=== PATIENT | male | born 1955 | race Caucasian/White ===

== ENCOUNTER 2016-09-28 15:12 | Emergency (ER) | payer BC ==
--- NOTE | 2016-09-28 15:43 | EDM.PDOC ---
ED HPI GENERAL MEDICAL PROBLEM - General Chief Complaint: Lower Extremity Injury/Pain Stated Complaint: PAIN IN RIGHT HIP AND GROIN Time Seen by Provider: 09/28/16 15:38 - History of Present Illness INITIAL COMMENTS - FREE TEXT/NARRATIVE: HISTORY AND PHYSICAL: []60-year-old male presenting with right hip pain radiating to his groin History of Present Illness: []Pain occurs when patient is up and walking. This has been a chronic problem where he goes to the chiropractor and is good for about 1 day Pain used to occur every 6 weeks or so, this is the third time this week that this has happened. Pain is relieved when sitting or laying down. When walking pain is 8/10 Review of Systems: As per history of present illness and below otherwise all systems reviewed and negative. Past medical history: As per history of present illness and as reviewed below otherwise noncontributory. Surgical history: As per history of present illness and as reviewed below otherwise noncontributory. Social history: No reported history of drug or alcohol abuse. Family history: As per history of present illness and as reviewed below otherwise noncontributory. Physical exam: Alert and oriented gentleman answering questions appropriately has a good affect skin is warm and dry. Patient did see his chiropractor yesterday and pain recurred today. HEENT: Atraumatic, normocehpalic, pupils reactive, negative for conjunctival pallor or scleral icterus, mucous membranes moist, throat clear, neck supple, nontender, trachea midline. Lungs: Clear to auscultation, breath sounds equal bilaterally, chest non tender. Heart: S1S2, regular, negative for clicks, rubs, or JVD. Abdomen: Soft, nondistended, nontender. Negative for masses or hepatossplenmegaly. Negative for costovertebral tenderness. Pelvis: Stable nontender. Right hip nontender with palpation extending to the right groin area no pain with palpation Genitourinary: Deferred. Rectal: Deferred Extremities: Atraumatic, negative for cords or calf pain. Neurovascular unremarkable. Neuro: Awake, alert, oriented. Cranial nerves II through XII unremarkable. Cerebellum unremarkable. Motor and sensory unremarkable throughout. Exam nonfocal. Diagnostics: [Right hip x-ray with pelvis] Therapeutics: [] Impression: [Degenerative disease right hip] Plan: []Home anti-inflammatories Definitive disposition and diagnosis as appropriate pending reevaluation and review of above. Onset: Sudden Duration: Chronic, Intermittent Right Hip/Martir Pain Score (Numeric/FACES): 2 - Related Data Allergies Allergy/AdvReac Type Severity Reaction Status Date / Time No Known Allergies Allergy Verified 09/28/16 15:28 Home Meds: Home Meds Multivitamin [Daily Multiple Vitamin] 1 tab PO DAILY 12/01/15 [History] Past Medical History Other HEENT History: wears glasses Cardiovascular History: Reports: None, Other (See Below) Respiratory History: Reports: None Gastrointestinal History: Reports: None Genitourinary History: Reports: Renal Calculus Musculoskeletal History: Reports: Arthritis, Back Pain, Chronic, Neck Pain, Chronic Neurological History: Reports: None Psychiatric History: Reports: None Endocrine/Metabolic History: Reports: Obesity/BMI 30+ Hematologic History: Reports: None Immunologic History: Reports: None Oncologic (Cancer) History: Reports: None Dermatologic History: Reports: None - Infectious Disease History Infectious Disease History: Reports: Chicken Pox, Measles - Past Surgical History Head Surgeries/Procedures: Reports: None HEENT Surgical History: Reports: Adenoidectomy, Oral Surgery, Tonsillectomy Respiratory Surgical History: Reports: None GI Surgical History: Reports: Colonoscopy Male Surgical History: Reports: Kidney Stone Extraction, Lithotripsy (ESWL) Endocrine Surgical History: Reports: None Neurological Surgical History: Reports: None Oncologic Surgical History: Reports: None Dermatological Surgical History: Reports: None - History Comment History Comment: etoh "2x a day" per ER note, but the patient states that he has not had ETOH in one year. Social & Family History - Family History Family Medical History: Noncontributory - Tobacco Use Smoking Status *Q: Never Smoker Second Hand Smoke Exposure: No - Alcohol Use Days Per Week of Alcohol Use: 1 Number of Drinks Per Day: 2 Total Drinks Per Week: 2 - Recreational Drug Use Recreational Drug Use: No Drug Use in Last 12 Months: No Review of Systems - Review of Systems Review Of Systems: ROS reveals no pertinent complaints other than HPI. ED EXAM, GENERAL - Physical Exam Exam: See Below (See dictation) Course - Vital Signs Last Recorded V/S: Last Vital Signs Temp 36.6 C 09/28/16 15:28 Pulse 68 09/28/16 15:28 Resp 18 09/28/16 15:28 BP 133/82 09/28/16 15:28 Pulse Ox 94 L 09/28/16 15:28 Departure - Departure Time of Disposition: 16:54 Disposition: Home, Self-Care 01 Condition: Good Clinical Impression: Degenerative arthritis Qualifiers: Osteoarthritis location: hip Osteoarthritis type: primary Laterality: right Qualified Code(s): M16.11 - Unilateral primary osteoarthritis, right hip - Discharge Information Instructions: Hip Pain Forms: ED Department Discharge Additional Instructions: The following information is given to patients seen in the emergency department who are being discharged to home. This information is to outline your options for follow-up care. We provide all patients seen in our emergency department with a follow-up referral. The need for follow-up, as well as the timing and circumstances, are variable depending upon the specifics of your emergency department visit. If you don't have a primary care physician on staff, we will provide you with a referral. We always advise you to contact your personal physician following an emergency department visit to inform them of the circumstance of the visit and for follow-up with them and/or the need for any referrals to a consulting specialist. The emergency department will also refer you to a specialist when appropriate. This referral assures that you have the opportunity for followup care with a specialist. All of these measure are taken in an effort to provide you with optimal care, which includes your followup. Under all circumstances we always encourage you to contact your private physician who remains a resource for coordinating your care. When calling for followup care, please make the office aware that this follow-up is from your recent emergency room visit. If for any reason you are refused follow-up, please contact the [facility] emergency department at and asked to speak to the emergency department charge nurse. Your treated with some Toradol IM for pain Please continue with your [id number] pain medication Keep appointment with Dr. Gonzalez on of next week
--- NOTE | 2016-09-28 16:14 | CR ---
EXAMINATION: Pelvis and right hip HISTORY: Pain COMPARISON: CT dated 11/29/2015 TECHNIQUE: AP pelvis and 2 views of the right hip FINDINGS: No fracture or acute osseous abnormality is demonstrated. Bone mineralization and joint sp aces are grossly preserved. Prominent spurring is noted along the superior margin of the acetabula b ilaterally. Mild subchondral cystic change within the left hip. The SI joints are symmetric with ant erior osteophytes. IMPRESSION: 1. Degenerative changes without acute findings.
[2016-09-28] MEDS ORDERED: Ketorolac 60 MG/2 ML SDV IM ONE (16:55)
[2016-09-28 18:31] VITALS: BP 131/89
== END 2016-09-28 17:20 | disposition home or self-care (01) ==
LOC: MW.ED 15:12
DX: M16.11 Unilateral primary osteoarthritis, right hip (principal); E66.9 Obesity, unspecified; Z87.442 Personal history of urinary calculi; Z98.890 Other specified postprocedural states
CPT/HCPCS: 73502; 96372; 99283; J1885

== ENCOUNTER 2017-04-13 11:50 | Emergency (ER) | payer BC ==
[2017-04-13] MEDS ORDERED: Sodium Chloride 0.9% 2.5 ML Syringe FLUSH PRN (12:08)
[2017-04-13] MEDS ORDERED: Sodium Chloride 0.9% 10 ML Syringe FLUSH PRN (12:08)
[2017-04-13] MEDS ORDERED: Sodium Chloride 0.9% 1,000 ML IV ONE (12:08)
--- NOTE | 2017-04-13 12:10 | EDM.PDOC ---
ED HPI GENERAL MEDICAL PROBLEM - General Stated Complaint: WEAK,DARK STOOL Time Seen by Provider: 04/13/17 12:01 Source of Information: Reports: Patient History Limitations: Reports: No Limitations - History of Present Illness INITIAL COMMENTS - FREE TEXT/NARRATIVE: History of present illness: []Patient started having bloody stools this morning's had 3 episodes. Patient may have passed out while sitting on the toilet during the episodes. He denies any abdominal pain, nausea vomiting, rectal pain or dizziness at this time. Patient's last colonoscopy was done by Dr. Ying 4 or 5 years ago and states he may have had a polyp removed. Review of systems: As per history of present illness and below otherwise all systems reviewed and negative. Past medical history: As per history of present illness and as reviewed below otherwise noncontributory. Surgical history: As per history of present illness and as reviewed below otherwise noncontributory. Social history: No reported history of drug or alcohol abuse. Family history: As per history of present illness and as reviewed below otherwise noncontributory. Physical exam: General: Well developed, well nourished in NAD HEENT: Atraumatic, normocephalic, pupils reactive, negative for conjunctival pallor or scleral icterus, mucous membranes moist, throat clear, neck supple, nontender, trachea midline. Lungs: Clear to auscultation, breath sounds equal bilaterally, chest nontender. Heart: S1S2, regular, negative for clicks, rubs, or JVD. Abdomen: Soft, nondistended, nontender. Negative for masses or hepatosplenomegaly. Negative for costovertebral tenderness. Pelvis: Stable nontender. Genitourinary: Deferred. Rectal: Black stool positive guaiac Extremities: Atraumatic, negative for cords or calf pain. Neurovascular unremarkable. Neuro: Awake, alert, oriented. Cranial nerves II through XII unremarkable. Cerebellum unremarkable. Motor and sensory unremarkable throughout. Exam nonfocal. Diagnostics: []Labs are normal showing no anemia unstable Therapeutics: [] Impression: []Lower GI bleed Plan: []Follow-up with Dr. Davis on April 16 for appointment time. Definitive disposition and diagnosis as appropriate pending reevaluation and review of above. - Related Data Allergies Allergy/AdvReac Type Severity Reaction Status Date / Time No Known Allergies Allergy Verified 04/13/17 12:17 Home Meds: Home Meds Multivitamin [Daily Multiple Vitamin] 1 tab PO DAILY 12/01/15 [History] Calcium Polycarbophil [Fiber Tabs] 1 tab PO DAILY 04/13/17 [History] Fish Oil/[place]-3 Fatty Acids [Fish Oil] 1 each PO DAILY 04/13/17 [History] Past Medical History Other HEENT History: wears glasses Cardiovascular History: Reports: None, Other (See Below) Respiratory History: Reports: None Gastrointestinal History: Reports: None Genitourinary History: Reports: Renal Calculus Musculoskeletal History: Reports: Arthritis, Back Pain, Chronic, Neck Pain, Chronic Neurological History: Reports: None Psychiatric History: Reports: None Endocrine/Metabolic History: Reports: Obesity/BMI 30+ Hematologic History: Reports: None Immunologic History: Reports: None Oncologic (Cancer) History: Reports: None Dermatologic History: Reports: None - Infectious Disease History Infectious Disease History: Reports: Chicken Pox, Measles - Past Surgical History Head Surgeries/Procedures: Reports: None HEENT Surgical History: Reports: Adenoidectomy, Oral Surgery, Tonsillectomy Respiratory Surgical History: Reports: None GI Surgical History: Reports: Colonoscopy Male Surgical History: Reports: Kidney Stone Extraction, Lithotripsy (ESWL) Endocrine Surgical History: Reports: None Neurological Surgical History: Reports: None Oncologic Surgical History: Reports: None Dermatological Surgical History: Reports: None - History Comment History Comment: etoh "2x a day" per ER note, but the patient states that he has not had ETOH in one year. Social & Family History - Family History Family Medical History: Noncontributory - Tobacco Use Smoking Status *Q: Never Smoker Second Hand Smoke Exposure: No - Alcohol Use Days Per Week of Alcohol Use: 1 Number of Drinks Per Day: 2 Total Drinks Per Week: 2 - Recreational Drug Use Recreational Drug Use: No Drug Use in Last 12 Months: No ED ROS GENERAL - Review of Systems Review Of Systems: See Below (See history of present illness) ED EXAM, GI/ABD - Physical Exam Exam: See Below (See history of present illness) Course - Vital Signs Last Recorded V/S: Last Vital Signs Temp Pulse 90 04/13/17 12:15 Resp 12 04/13/17 12:15 BP 118/73 04/13/17 12:15 Pulse Ox 97 04/13/17 12:15 - Orders/Labs/Meds Orders: Active Orders 24 hr Category Date Time Status Communication Order [RC] STAT Care 04/13/17 13:36 Active Fecal Occult Blood Collection [RC] ASDIRECTED Care 04/13/17 13:59 Active Sodium Chloride 0.9% [Saline Flush] Med 04/13/17 12:08 Active 10 ml FLUSH ASDIRECTED PRN Sodium Chloride 0.9% [Saline Flush] Med 04/13/17 12:08 Active 2.5 ml FLUSH ASDIRECTED PRN Saline Lock Insert [OM.PC] Stat Oth 04/13/17 12:08 Ordered Medication Orders Sodium Chloride (Saline Flush) 10 ml FLUSH ASDIRECTED PRN PRN Reason: Keep Vein Open Sodium Chloride (Saline Flush) 2.5 ml FLUSH ASDIRECTED PRN PRN Reason: Keep Vein Open Labs: Laboratory Tests 04/13/17 04/13/17 04/13/17 Range/Units 12:19 12:19 12:19 WBC 15.33 H (4.0-11.0) K/uL RBC 4.67 (4.50-5.90) M/uL Hgb 13.2 (13.0-17.0) g/dL Hct 39.5 (38.0-50.0) % MCV 84.6 (80.0-98.0) fL MCH 28.3 (27.0-32.0) pg MCHC 33.4 (31.0-37.0) g/dL RDW Std Deviation 41.3 (28.0-62.0) fl RDW Coeff of [place] 14 (11.0-15.0) % Plt Count 426 H (150-400) K/uL MPV 10.40 (7.40-12.00) fL Neut % (Auto) 83.7 H (48.0-80.0) % Lymph % (Auto) 12.8 L (16.0-40.0) % [place] % (Auto) 3.2 (0.0-15.0) % Eos % (Auto) 0.1 (0.0-7.0) % Baso % (Auto) 0.2 (0.0-1.5) % Neut # (Auto) 12.8 H (1.4-5.7) K/uL Lymph # (Auto) 2.0 (0.6-2.4) K/uL [place] # (Auto) 0.5 (0.0-0.8) K/uL Eos # (Auto) 0.0 (0.0-0.7) K/uL Baso # (Auto) 0.0 (0.0-0.1) K/uL Nucleated RBC % 0.0 /100WBC Nucleated RBCs # 0 K/uL INR 1.05 (0.86-1.11) APTT 24.0 (18.6-31.3) SEC Sodium 140 (136-146) mmol/L Potassium 4.2 (3.5-5.1) mmol/L Chloride 113 H (98-110) mmol/L Carbon Dioxide 20 L (21-31) mmol/L BUN 57 H (6.0-23.0) mg/dL Creatinine 1.0 (0.6-1.5) mg/dL Est Cr Clr Drug Dosing 78.07 mL/min Estimated GFR (MDRD) > 60.0 ml/min Glucose 157 H (60-110) mg/dL Calcium 9.4 (8.8-10.8) mg/dL Total Bilirubin 1.1 (0.1-1.5) mg/dL AST 11 (5-40) IU/L ALT 16 (8-54) IU/L Alkaline Phosphatase 37 L (40-150) Total Protein 6.5 (6.0-8.0) g/dL Albumin 4.2 (3.4-4.8) g/dL Globulin 2.3 (2.0-3.5) g/dL Albumin/Globulin Ratio 1.8 (1.3-2.8) Blood Type Antibody Screen 04/13/17 Range/Units 12:19 WBC (4.0-11.0) K/uL RBC (4.50-5.90) M/uL Hgb (13.0-17.0) g/dL Hct (38.0-50.0) % MCV (80.0-98.0) fL MCH (27.0-32.0) pg MCHC (31.0-37.0) g/dL RDW Std Deviation (28.0-62.0) fl RDW Coeff of Howard (11.0-15.0) % Plt Count (150-400) K/uL MPV (7.40-12.00) fL Neut % (Auto) (48.0-80.0) % Lymph % (Auto) (16.0-40.0) % [place] % (Auto) (0.0-15.0) % Eos % (Auto) (0.0-7.0) % Baso % (Auto) (0.0-1.5) % Neut # (Auto) (1.4-5.7) K/uL Lymph # (Auto) (0.6-2.4) K/uL [place] # (Auto) (0.0-0.8) K/uL Eos # (Auto) (0.0-0.7) K/uL Baso # (Auto) (0.0-0.1) K/uL Nucleated RBC % /100WBC Nucleated RBCs # K/uL INR (0.86-1.11) APTT (18.6-31.3) SEC Sodium (136-146) mmol/L Potassium (3.5-5.1) mmol/L Chloride (98-110) mmol/L Carbon Dioxide (21-31) mmol/L BUN (6.0-23.0) mg/dL Creatinine (0.6-1.5) mg/dL Est Cr Clr Drug Dosing mL/min Estimated GFR (MDRD) ml/min Glucose (60-110) mg/dL Calcium (8.8-10.8) mg/dL Total Bilirubin (0.1-1.5) mg/dL AST (5-40) IU/L ALT (8-54) IU/L Alkaline Phosphatase (40-150) Total Protein (6.0-8.0) g/dL Albumin (3.4-4.8) g/dL Globulin (2.0-3.5) g/dL Albumin/Globulin Ratio (1.3-2.8) Blood Type O POSITIVE Antibody Screen NEGATIVE Meds: Medications Generic Name Dose Route Start Last Admin Trade Name Freq PRN Reason Stop Dose Admin Sodium Chloride 10 ml 04/13/17 12:08 Saline Flush FLUSH ASDIRECTED PRN Keep Vein Open Sodium Chloride 2.5 ml 04/13/17 12:08 Saline Flush FLUSH ASDIRECTED PRN Keep Vein Open Discontinued Medications Generic Name Dose Route Start Last Admin Trade Name Freq PRN Reason Stop Dose Admin Sodium Chloride 1,000 mls @ 999 mls/hr 04/13/17 12:08 Normal Saline IV 04/13/17 13:08 .Bolus ONE Departure - Departure Time of Disposition: 14:01 Disposition: Home, Self-Care 01 Condition: Good Clinical Impression: Lower GI bleeding - Discharge Information Referrals: Svetlana Styles MD [Physician] - (Call today for appointment time for April 16 appointment) Additional Instructions: The following information is given to patients seen in the emergency department who are being discharged to home. This information is to outline your options for follow-up care. We provide all patients seen in our emergency department with a follow-up referral. The need for follow-up, as well as the timing and circumstances, are variable depending upon the specifics of your emergency department visit. If you don't have a primary care physician on staff, we will provide you with a referral. We always advise you to contact your personal physician following an emergency department visit to inform them of the circumstance of the visit and for follow-up with them and/or the need for any referrals to a consulting specialist. The emergency department will also refer you to a specialist when appropriate. This referral assures that you have the opportunity for follow-up care with a specialist. All of these measure are taken in an effort to provide you with optimal care, which includes your follow-up. Under all circumstances we always encourage you to contact your private physician who remains a resource for coordinating your care. When calling for follow-up care, please make the office aware that this follow-up is from your recent emergency room visit. If for any reason you are refused follow-up, please contact the [facility] Emergency Department at and asked to speak to the emergency department charge nurse. Call Dr. Davis's office for follow-up on SundayApril 16 - My Orders Last 24 Hours: My Active Orders 04/13/17 12:08 Sodium Chloride 0.9% [Saline Flush] 10 ml FLUSH ASDIRECTED PRN Sodium Chloride 0.9% [Saline Flush] 2.5 ml FLUSH ASDIRECTED PRN Saline Lock Insert [OM.PC] Stat 04/13/17 13:36 Communication Order [RC] STAT 04/13/17 13:59 Fecal Occult Blood Collection [RC] ASDIRECTED - Assessment/Plan Last 24 Hours: My Active Orders 04/13/17 12:08 Sodium Chloride 0.9% [Saline Flush] 10 ml FLUSH ASDIRECTED PRN Sodium Chloride 0.9% [Saline Flush] 2.5 ml FLUSH ASDIRECTED PRN Saline Lock Insert [OM.PC] Stat 04/13/17 13:36 Communication Order [RC] STAT 04/13/17 13:59 Fecal Occult Blood Collection [RC] ASDIRECTED
[2017-04-13 12:17] VITALS: BP 118/73
[2017-04-13 13:01] LABS: CHLORIDE,CL 113 mmol/L (98-110); SODIUM,NA 140 mmol/L (136-146)
== END 2017-04-13 15:15 | disposition home or self-care (01) ==
LOC: MW.ED 11:50
DX: K92.2 Gastrointestinal hemorrhage, unspecified (principal)
CPT/HCPCS: 36415; 80053; 85025; 85610; 85730; 86677; 86850; 86900; 86901; 96360; 99285; J7040; 99283

== ENCOUNTER 2017-04-16 12:00 | Inpatient (IN) | payer BC ==
[2017-04-16 12:37] LABS: CHLORIDE,CL 112 mmol/L (98-110); SODIUM,NA 141 mmol/L (136-146)
--- NOTE | 2017-04-16 12:45 | EDM.PDOC ---
ED HPI GENERAL MEDICAL PROBLEM - General Chief Complaint: Syncope Stated Complaint: DIZZINESS Time Seen by Provider: 04/16/17 12:00 Source of Information: Reports: Patient History Limitations: Reports: No Limitations - History of Present Illness INITIAL COMMENTS - FREE TEXT/NARRATIVE: HISTORY AND PHYSICAL: History of present illness: [Patient comes to the emergency room via EMS from Dr. Styles's office. He had an appointment with her this morning for preop consultation for colonoscopy. While he was there, he began to feel very nauseous, dizzy and he passed out. Office staff report that he was out for 10-15 seconds, during which time he had some muscle shaking. It isn't clear if patient experienced seizure activity, but he had one episode of urinary incontinence. The patient woke up immediately afterwards and felt significantly improved. He presents to ER awake, alert, oriented without any complaints of pain. He states that he is feeling well. Received 250 mL's of NS prior to arriving in the ER. He was evaluated in the ER on 04/13/17 for dark black tarry stools, and hemoglobin was 13.2. He was discharged to home with instructions to follow-up with Dr. Gilliland this morning. Over the weekend he did not have any overt rectal bleeding. [place] well this morning and had no other complaints or concerns. He is still feeling well. He denies chest pain shortness of breath and difficulty breathing. No headache, dizziness or lightheadedness. No abdominal pain nausea or vomiting. No constipation or diarrhea. Denies muscle and joint aches and pains. No numbness or tingling.] Review of systems: As per history of present illness and below otherwise all systems reviewed and negative. Past medical history: As per history of present illness and as reviewed below otherwise noncontributory. Surgical history: As per history of present illness and as reviewed below otherwise noncontributory. Social history: No reported history of drug or alcohol abuse. Family history: As per history of present illness and as reviewed below otherwise noncontributory. Physical exam: HEENT: Atraumatic, normocephalic. PERRLA. EOMI. mucous membranes moist and pink. Neck supple no lymphadenopathy. Lungs: Clear to auscultation, breath sounds equal bilaterally. Heart: S1S2, regular rate and rhythm. Abdomen: Soft, nondistended, nontender. Negative for costovertebral tenderness. Pelvis: Stable nontender. Genitourinary: Deferred. Rectal: Normal sphincter tone. Hard stool in rectal vault. SFOB +. Extremities: Atraumatic. No cyanosis or edema to feet or lower legs. Neurovascular unremarkable. Neuro: Awake, alert, oriented. Motor and sensory unremarkable throughout. Exam nonfocal. Diagnostics: [CBC, CMP, UA, chest x-ray, EKG, type and screen, PT/INR, troponin, head CT without contrast] Therapeutics: [1 liter NS, 2 units PRBCs] Impression: [syncope vs seizure disorder Symptomatic anemia GI bleed] Plan: [Patient's hemoglobin is 9.3 today which is a significant drop from 13.2 on April 13. Patient will be hospitalized under the care of Dr. Tomlinson for GI bleed. Patient is in agreement with today's plan.] Definitive disposition and diagnosis as appropriate pending reevaluation and review of above. - Related Data Allergies Allergy/AdvReac Type Severity Reaction Status Date / Time No Known Allergies Allergy Verified 04/16/17 12:12 Home Meds: Home Meds Multivitamin [Daily Multiple Vitamin] 1 tab PO DAILY 12/01/15 [History] Calcium Polycarbophil [Fiber Tabs] 1 tab PO DAILY 04/13/17 [History] Fish Oil/[place]-3 Fatty Acids [Fish Oil] 1 each PO DAILY 04/13/17 [History] Pantoprazole Sodium [Protonix] 20 mg PO DAILY #30 tablet. 04/13/17 [Rx] Past Medical History Other HEENT History: wears glasses Cardiovascular History: Reports: None, Other (See Below) Respiratory History: Reports: None Gastrointestinal History: Reports: None Genitourinary History: Reports: Renal Calculus Musculoskeletal History: Reports: Arthritis, Back Pain, Chronic, Neck Pain, Chronic Neurological History: Reports: None Psychiatric History: Reports: None Endocrine/Metabolic History: Reports: Obesity/BMI 30+ Hematologic History: Reports: None Immunologic History: Reports: None Oncologic (Cancer) History: Reports: None Dermatologic History: Reports: None - Infectious Disease History Infectious Disease History: Reports: Chicken Pox, Measles - Past Surgical History Head Surgeries/Procedures: Reports: None HEENT Surgical History: Reports: Adenoidectomy, Oral Surgery, Tonsillectomy Respiratory Surgical History: Reports: None GI Surgical History: Reports: Colonoscopy Male Surgical History: Reports: Kidney Stone Extraction, Lithotripsy (ESWL) Endocrine Surgical History: Reports: None Neurological Surgical History: Reports: None Oncologic Surgical History: Reports: None Dermatological Surgical History: Reports: None - History Comment History Comment: etoh "2x a day" per ER note, but the patient states that he has not had ETOH in one year. Social & Family History - Family History Family Medical History: Noncontributory - Tobacco Use Smoking Status *Q: Never Smoker Second Hand Smoke Exposure: No - Caffeine Use Caffeine Use: Reports: Soda - Alcohol Use Days Per Week of Alcohol Use: 1 Number of Drinks Per Day: 2 Total Drinks Per Week: 2 - Recreational Drug Use Recreational Drug Use: No Drug Use in Last 12 Months: No ED ROS GENERAL - Review of Systems Review Of Systems: ROS reveals no pertinent complaints other than HPI. - Physical Exam Exam: See Below Course - Vital Signs Last Recorded V/S: Last Vital Signs Temp 99.3 F 04/16/17 16:50 Pulse 75 04/16/17 16:50 Resp 18 04/16/17 16:50 BP 117/69 04/16/17 16:50 Pulse Ox 99 04/16/17 16:50 - Orders/Labs/Meds Orders: Active Orders 24 hr Category Date Time Status Patient Status [ADT] Stat ADT 04/16/17 14:47 Active Fecal Occult Blood Collection [RC] ASDIRECTED Care 04/16/17 14:33 Active RED BLOOD CELLS LP [BBK] Stat Lab 04/16/17 12:01 Results TYPE AND SCREEN [BBK] Stat Lab 04/16/17 12:01 Results Transfuse Red Blood Cells [COMM] Stat Oth 04/16/17 14:41 Ordered Medication Orders Pantoprazole Sodium 80 mg/ (Sodium Chloride) 50 mls @ 5 mls/hr IV Q10H DIANE Stop: 04/19/17 16:16 Last Admin: 04/16/17 16:46 Dose: 5 mls/hr Sodium Chloride (Normal Saline) 1,000 mls @ 125 mls/hr IV ASDIRECTED DIANE Ondansetron HCl (Zofran) 4 mg IVPUSH Q4H PRN PRN Reason: Nausea Labs: Laboratory Tests 04/16/17 04/16/17 04/16/17 Range/Units 12:01 12:01 12:01 WBC 6.62 (4.0-11.0) K/uL RBC 3.28 L (4.50-5.90) M/uL Hgb 9.4 L (13.0-17.0) g/dL Hct 28.3 L (38.0-50.0) % MCV 86.3 (80.0-98.0) fL MCH 28.7 (27.0-32.0) pg MCHC 33.2 (31.0-37.0) g/dL RDW Std Deviation 43.2 (28.0-62.0) fl RDW Coeff of Howard 14 (11.0-15.0) % Plt Count 336 (150-400) K/uL MPV 10.20 (7.40-12.00) fL Neut % (Auto) 56.0 (48.0-80.0) % Lymph % (Auto) 28.9 (16.0-40.0) % [place] % (Auto) 12.1 (0.0-15.0) % Eos % (Auto) 2.7 (0.0-7.0) % Baso % (Auto) 0.3 (0.0-1.5) % Neut # (Auto) 3.7 (1.4-5.7) K/uL Lymph # (Auto) 1.9 (0.6-2.4) K/uL [place] # (Auto) 0.8 (0.0-0.8) K/uL Eos # (Auto) 0.2 (0.0-0.7) K/uL Baso # (Auto) 0.0 (0.0-0.1) K/uL Nucleated RBC % 0.0 /100WBC Nucleated RBCs # 0 K/uL INR 1.01 (0.86-1.11) Sodium 141 (136-146) mmol/L Potassium 3.9 (3.5-5.1) mmol/L Chloride 112 H (98-110) mmol/L Carbon Dioxide 21 (21-31) mmol/L BUN 16 (6.0-23.0) mg/dL Creatinine 0.9 (0.6-1.5) mg/dL Est Cr Clr Drug Dosing 86.74 mL/min Estimated GFR (MDRD) > 60.0 ml/min Glucose 109 (60-110) mg/dL Calcium 8.6 L (8.8-10.8) mg/dL Total Bilirubin 0.6 (0.1-1.5) mg/dL AST 16 (5-40) IU/L ALT 21 (8-54) IU/L Alkaline Phosphatase 34 L (40-150) Troponin I < 0.10 (0.0-0.29) NG/ML Total Protein 5.7 L (6.0-8.0) g/dL Albumin 3.8 (3.4-4.8) g/dL Globulin 1.9 L (2.0-3.5) g/dL Albumin/Globulin Ratio 2.0 (1.3-2.8) Blood Type Antibody Screen Crossmatch 04/16/17 Range/Units 12:01 WBC (4.0-11.0) K/uL RBC (4.50-5.90) M/uL Hgb (13.0-17.0) g/dL Hct (38.0-50.0) % MCV (80.0-98.0) fL MCH (27.0-32.0) pg MCHC (31.0-37.0) g/dL RDW Std Deviation (28.0-62.0) fl RDW Coeff of Howard (11.0-15.0) % Plt Count (150-400) K/uL MPV (7.40-12.00) fL Neut % (Auto) (48.0-80.0) % Lymph % (Auto) (16.0-40.0) % [place] % (Auto) (0.0-15.0) % Eos % (Auto) (0.0-7.0) % Baso % (Auto) (0.0-1.5) % Neut # (Auto) (1.4-5.7) K/uL Lymph # (Auto) (0.6-2.4) K/uL [place] # (Auto) (0.0-0.8) K/uL Eos # (Auto) (0.0-0.7) K/uL Baso # (Auto) (0.0-0.1) K/uL Nucleated RBC % /100WBC Nucleated RBCs # K/uL INR (0.86-1.11) Sodium (136-146) mmol/L Potassium (3.5-5.1) mmol/L Chloride (98-110) mmol/L Carbon Dioxide (21-31) mmol/L BUN (6.0-23.0) mg/dL Creatinine (0.6-1.5) mg/dL Est Cr Clr Drug Dosing mL/min Estimated GFR (MDRD) ml/min Glucose (60-110) mg/dL Calcium (8.8-10.8) mg/dL Total Bilirubin (0.1-1.5) mg/dL AST (5-40) IU/L ALT (8-54) IU/L Alkaline Phosphatase (40-150) Troponin I (0.0-0.29) NG/ML Total Protein (6.0-8.0) g/dL Albumin (3.4-4.8) g/dL Globulin (2.0-3.5) g/dL Albumin/Globulin Ratio (1.3-2.8) Blood Type O POSITIVE Antibody Screen NEGATIVE Crossmatch See Detail Meds: Medications Generic Name Dose Route Start Last Admin Trade Name Freq PRN Reason Stop Dose Admin Pantoprazole Sodium 80 mg/ 50 mls @ 5 mls/hr 04/16/17 16:15 04/16/17 16:46 Sodium Chloride IV 04/19/17 16:16 5 mls/hr Q10H DIANE Administration Sodium Chloride 1,000 mls @ 125 mls/hr 04/16/17 15:45 Normal Saline IV ASDIRECTED DIANE Ondansetron HCl 4 mg 04/16/17 15:24 Zofran IVPUSH Q4H PRN Nausea Discontinued Medications Generic Name Dose Route Start Last Admin Trade Name Freq PRN Reason Stop Dose Admin Sodium Chloride 1,000 mls @ 500 mls/hr 04/16/17 14:34 04/16/17 15:02 Normal Saline IV 04/16/17 16:33 500 mls/hr STAT ONE Administration Iopamidol 100 ml 04/16/17 13:31 04/16/17 13:31 Isovue Multipack-370 (76%) IVPUSH 04/16/17 13:32 100 ml ONETIME STA Administration Pantoprazole Sodium 80 mg 04/16/17 15:27 04/16/17 15:45 Protonix Iv IVPUSH 04/16/17 15:28 80 mg .BOLUS ONE Administration Departure - Departure Time of Disposition: 14:46 Disposition: Admitted As Inpatient 64 Condition: Fair Clinical Impression: Syncope, Anemia, GI bleed - Discharge Information - My Orders Last 24 Hours: My Active Orders 04/16/17 12:01 RED BLOOD CELLS LP [BBK] Stat TYPE AND SCREEN [BBK] Stat 04/16/17 14:33 Fecal Occult Blood Collection [RC] ASDIRECTED 04/16/17 14:41 Transfuse Red Blood Cells [COMM] Stat 04/16/17 14:47 Patient Status [ADT] Stat - Assessment/Plan Last 24 Hours: My Active Orders 04/16/17 12:01 RED BLOOD CELLS LP [BBK] Stat TYPE AND SCREEN [BBK] Stat 04/16/17 14:33 Fecal Occult Blood Collection [RC] ASDIRECTED 04/16/17 14:41 Transfuse Red Blood Cells [COMM] Stat 04/16/17 14:47 Patient Status [ADT] Stat
--- NOTE | 2017-04-16 12:46 | CR ---
EXAMINATION: PA chest radiograph. HISTORY: Syncope. FINDINGS: The trachea is midline. The cardiomediastinal silhouette is within normal limits. No pulmonary infilt rates, effusions or pneumothorax. Osseous structures appear unremarkable. IMPRESSION: No acute cardiopulmonary process.
--- NOTE | 2017-04-16 12:57 | CT ---
EXAMINATION: Non contrast CT head. Coronal and sagittal reformats. HISTORY: Syncope FINDINGS: No evidence of intra or extra axial hemorrhage, mass, midline shift, hydrocephalus or edema. No hypoattenuation changes in the major vascular territories to suggest acute infarct. No abnormal intracranial calcifications are detected. No evidence of substantial vascular calcificat ions. Paranasal sinuses and mastoid air cells are well aerated without substantial findings. Orbits and gl obes are symmetric. Pituitary fossa appears unremarkable. Calvarium is intact. No evidence of skull fracture. IMPRESSION: No acute intracranial findings.
[2017-04-16] MEDS ORDERED: Iopamidol 755 MG/ML 500 ML Multipack Bottle IVPUSH STA (13:31)
--- NOTE | 2017-04-16 13:58 | CT ---
CT of the abdomen and pelvis with contrast. HISTORY: GI bleed TECHNIQUE: Axial CT images were obtained of the abdomen and pelvis following administration of 100 mL of Isovue-370 in the left antecubital fossa without complication. Coronal and sagittal reconstructio ns obtained. FINDINGS: The lung bases are clear, no pleural effusion. Mild atelectasis. The liver, spleen, adrenal glands, and pancreas appear normal. The gallbladder is normal. No bulky re troperitoneal lymphadenopathy or abdominal ascites. The kidneys enhance and function symmetrically without evidence of obstructive uropathy. There is a n onobstructing stone within the midpole of the left kidney. Renal cortical cysts are noted. The large and small bowel are normal in caliber without evidence of obstruction. Mild diverticulosis without evidence of diverticulitis. The appendix is normal. No bulky pelvic lymphadenopathy or free p elvic fluid. Prostate is mildly to moderately prominent. Urinary bladder is normal. Small fat-contain ing left inguinal hernia. No suspicious osseous abnormalities identified. IMPRESSION: 1. No acute findings within the abdomen or pelvis. 2. Mild diverticulosis. 3. Small fat-containing left humeral hernia. 4. Mild to moderate prostatomegaly.
[2017-04-16] MEDS ORDERED: Sodium Chloride 0.9% 1,000 ML IV ONE (14:34)
[2017-04-16] MEDS ORDERED: Ondansetron 4 MG/2 ML SDV IVPUSH PRN (15:24)
[2017-04-16] MEDS ORDERED: Pantoprazole 40 MG Vial IVPUSH ONE (15:27)
--- NOTE | 2017-04-16 16:27 | PCM.HP ---
H&P History of Present Illness - General Date of Service: 04/16/17 - History of Present Illness Initial Comments - Free Text/Narative: This is a 61-year-old male with a history of GI bleed presenting today after experiencing a syncopal episode/possible seizure activity at the outpatient clinic earlier prior to the emergency department. As per the patient, he tells me that he presented to the emergency department this past Sunday on April 13 after he had black tarry stool and was sent home on Protonix and advised to follow-up with Dr. Styles to schedule a possible scope. While at the clinic today, the patient had an episode of passing out and as per the surgeon, she states that he had possible seizure-like activity with convulsions and his eyes rolled back. The incident lasted approximately 1 minute as per the patient. He states that he felt lightheaded and sweaty prior to the event. Denies any shortness of breath, chest pain, difficulty breathing. He is also noted to have blood pressure in the 60s systolic and was then transferred to the emergency department. After fluid resuscitation, the patient's blood pressure was back to normal range. Hemoglobin was 9.4, given the symptomatic anemia, he was transfused 2 units of packed red blood cells. When I assessed him in the ER, patient had no complaints. - Related Data Allergies/Adverse Reactions: Allergies Allergy/AdvReac Type Severity Reaction Status Date / Time No Known Allergies Allergy Verified 04/16/17 12:12 Home Medications: Home Meds Multivitamin [Daily Multiple Vitamin] 1 tab PO DAILY 12/01/15 [History] Calcium Polycarbophil [Fiber Tabs] 1 tab PO DAILY 04/13/17 [History] Fish Oil/[place]-3 Fatty Acids [Fish Oil] 1 each PO DAILY 04/13/17 [History] Pantoprazole Sodium [Protonix] 20 mg PO DAILY #30 tablet. 04/13/17 [Rx] Past Medical History Other HEENT History: wears glasses Cardiovascular History: Reports: None, Other (See Below) Respiratory History: Reports: None Gastrointestinal History: Reports: None Genitourinary History: Reports: Renal Calculus Musculoskeletal History: Reports: Arthritis, Back Pain, Chronic, Neck Pain, Chronic Neurological History: Reports: None Psychiatric History: Reports: None Endocrine/Metabolic History: Reports: Obesity/BMI 30+ Hematologic History: Reports: None Immunologic History: Reports: None Oncologic (Cancer) History: Reports: None Dermatologic History: Reports: None - Infectious Disease History Infectious Disease History: Reports: Chicken Pox, Measles - Past Surgical History Head Surgeries/Procedures: Reports: None HEENT Surgical History: Reports: Adenoidectomy, Oral Surgery, Tonsillectomy Respiratory Surgical History: Reports: None GI Surgical History: Reports: Colonoscopy Male Surgical History: Reports: Kidney Stone Extraction, Lithotripsy (ESWL) Endocrine Surgical History: Reports: None Neurological Surgical History: Reports: None Oncologic Surgical History: Reports: None Dermatological Surgical History: Reports: None - History Comment History Comment: etoh "2x a day" per ER note, but the patient states that he has not had ETOH in one year. Social & Family History - Family History Family Medical History: Noncontributory - Tobacco Use Smoking Status *Q: Never Smoker Second Hand Smoke Exposure: No - Caffeine Use Caffeine Use: Reports: Soda - Alcohol Use Days Per Week of Alcohol Use: 1 Number of Drinks Per Day: 2 Total Drinks Per Week: 2 - Recreational Drug Use Recreational Drug Use: No Drug Use in Last 12 Months: No H&P Review of Systems - Review of Systems: Review Of Systems: See Below General: Reports: Other (See history of present illness.) HEENT: Denies: Headaches, Vertigo, Visual Changes Pulmonary: Denies: Shortness of Breath, Pleuritic Chest Pain, Cough Cardiovascular: Denies: Chest Pain, Palpitations, Dyspnea on Exertion Gastrointestinal: Reports: Black Stool. Denies: Abdominal Pain Musculoskeletal: Denies: Neck Pain, Shoulder Pain, Arm Pain Psychiatric: Denies: Confusion Neurological: Reports: Syncope. Denies: Confusion, Dizziness, Headache, Numbness, Seizure, Change in Speech Exam - Exam Exam: See Below - Vital Signs Vital Signs: Last Vital Signs Temp 36.5 C 04/16/17 12:09 Pulse 72 04/16/17 12:09 Resp 16 04/16/17 12:09 BP 108/67 04/16/17 12:09 Pulse Ox 96 04/16/17 12:09 Weight: 107.048 kg - Exam General: Alert, Oriented, Cooperative HEENT: Conjunctiva Clear, EACs Clear, EOMI Neck: Supple, Trachea Midline Lungs: Clear to Auscultation, Normal Respiratory Effort Cardiovascular: Regular Rate, Regular Rhythm GI/Abdominal Exam: Normal Bowel Sounds, Soft, Non-Tender (Male) Exam: No Hernia Back Exam: Normal Inspection Extremities: Normal Inspection, Normal Range of Motion Peripheral Pulses: 2+: Posterior Tibial (L), Posterior Tibial (R) Skin: Warm Neurological: Cranial Nerves Intact Neuro Extensive - Mental Status: Alert, Oriented x3, Normal Mood/Affect Neuro Extensive - Motor, Sensory, Reflexes: CN II-XII Intact, Normal Gait, Normal Reflexes Psychiatric: Alert, Normal Affect, Normal Mood - Patient Data Lab Results Last 24 hrs: Laboratory Results - last 24 hr 04/16/17 Range/Units 15:05 Urine Color YELLOW Urine Appearance CLEAR Urine pH 6.5 (5.0-8.0) Ur Specific [place] 1.010 (1.001-1.035) Urine Protein NEGATIVE (NEGATIVE) mg/dL Urine Glucose (UA) NEGATIVE (NEGATIVE) mg/dL Urine Ketones NEGATIVE (NEGATIVE) mg/dL Urine Occult Blood NEGATIVE (NEGATIVE) Urine Nitrite NEGATIVE (NEGATIVE) Urine Bilirubin NEGATIVE (NEGATIVE) Urine Urobilinogen 0.2 (<2.0) EU/dL Ur Leukocyte Esterase NEGATIVE (NEGATIVE) Urine RBC 0-1 (0-2/HPF) Urine WBC 0-1 (0-5/HPF) Ur Epithelial Cells RARE (NONE-FEW) Urine Bacteria RARE (NEGATIVE) Result Diagrams: 04/16/17 12:01 04/16/17 12:01 *Q Meaningful Use (ADM) - VTE *Q VTE Criteria *Q: - Stroke *Q Stroke Criteria *Q: - AMI *Q AMI Criteria *Q: Problem List Initiated/Reviewed/Updated: Yes Orders Last 24hrs: Active Orders 24 hr Category Date Time Status Antiembolic Devices [RC] PER UNIT ROUTINE Care 04/16/17 15:25 Active Oxygen Therapy [RC] PRN Care 04/16/17 15:24 Active Up ad Dayana [RC] ASDIRECTED Care 04/16/17 15:24 Active VTE/DVT Education [RC] PER UNIT ROUTINE Care 04/16/17 15:24 Active Vital Signs [RC] Q4H Care 04/16/17 15:24 Active Nothing per Oral Now Diet [DIET] Diet 04/16/17 Dinner Active HEMOGLOBIN/HEMATOCRIT,HH [HEME] Q6H Lab 04/16/17 19:30 Ordered HEMOGLOBIN/HEMATOCRIT,HH [HEME] Q6H Lab 04/17/17 01:30 Ordered HEMOGLOBIN/HEMATOCRIT,HH [HEME] Q6H Lab 04/17/17 07:30 Ordered Ondansetron [Zofran] Med 04/16/17 15:24 Active 4 mg IVPUSH Q4H PRN Pantoprazole [ProTONIX IV] 80 mg Med 04/16/17 16:15 Active Sodium Chloride 0.9% [Normal Saline] 50 ml IV Q10H Sodium Chloride 0.9% [Normal Saline] 1,000 ml Med 04/16/17 15:45 Active IV ASDIRECTED Sequential Compression Device [OM.PC] Per Unit Routine Oth 04/16/17 15:24 Ordered Resuscitation Status Routine Resus Stat 04/16/17 15:24 Ordered Medication Orders Sodium Chloride (Normal Saline) 1,000 mls @ 500 mls/hr IV STAT ONE Stop: 04/16/17 16:33 Last Admin: 04/16/17 15:02 Dose: 500 mls/hr Pantoprazole Sodium 80 mg/ (Sodium Chloride) 50 mls @ 5 mls/hr IV Q10H DIANE Stop: 04/19/17 16:16 Sodium Chloride (Normal Saline) 1,000 mls @ 125 mls/hr IV ASDIRECTED DIANE Ondansetron HCl (Zofran) 4 mg IVPUSH Q4H PRN PRN Reason: Nausea Assessment/Plan Comment:: Assessment #1. GI bleed #2. Symptomatic anemia secondary to #1 #3. Syncopal episode Plan #1. Admit to the floor for observation. I's and Os per floor routine. Vital signs per floor routine. SCD for DVT prophylaxis #2. Hemoglobin and hematocrit every 6 hours. Check after transfusion of 2 units is complete #3. Nothing by mouth #4. IV Protonix drip with initial loading dose of 80 mg followed by 8 mg an hour for the next 72 hours #5. This case has been discussed with surgery, Dr. Styles. She states that we' ll manage accordingly on what the hemoglobin and hematocrit along with this patient's hemodynamic status is. He may be scheduled for an upper GI scope tomorrow.
--- NOTE | 2017-04-16 18:04 | PCM.CONS ---
H&P History of Present Illness - General Date of Service: 04/16/17 Source of Information: Patient History Limitations: Reports: No Limitations - History of Present Illness Initial Comments - Free Text/Narative: Patient is a 61-year-old male who presented to the ER last Sunday with complaints of a syncopal episode and black tarry stools. He has a history of "rectal bleeding "which she was scoped for in 2012. The EGD and colonoscopy revealed no upper GI pathology and diverticulosis within the colon as well as mild hemorrhoidal disease. He states that the black stools he is noticing now are similar to what he experienced in 2012. Workup in the ER on Sunday was normal. His vital signs were normal and all lab work was within normal limits. He did have occult positive stool. H. pylori antigen test was negative. He states that he had another dark stool this morning and felt slightly lightheaded. He denies any family history of colon cancer. He denies any syncope since being seen last Sunday. His exam was normal other than dark appearing stool and an occasional PVC on cardiovascular exam. I consented the patient for an EGD and colonoscopy. While my nurse was performing her education the patient had a seizure/syncopal episode and lost consciousness. I came into the room and performed a jaw thrust maneuver. 911 was called. After a couple seconds the patient awoke and was slightly confused. He appeared ma ashen and diaphoretic. He was able to tell me his name date of and where he was at. A minute or 2 after regaining consciousness the patient seized. He had extension of his neck. Pupils were equal and round. He decorticate postured on the right side of his body. He had incontinence of urine. He remained this way for 10-15 seconds before coming out of it. For about 1 minute after he was postictal. His blood pressure was recorded as 66 over 40s. About a minute after he stopped seizing he was able to tell me his name where he was at in the month. He complained of nausea. His blood pressure continued to be low. EMS arrived. His blood sugar was 146. They loaded him up on a cot and taken to the emergency room. He had no more events in the ED. Vitals were stable and hgb was down from 13 on sunday to 9.4 today. HCT was normal. Abdominal CT was normal. He is currently being given two units of blood and feels well. He denies ever having a seizure in the past. - Related Data Allergies/Adverse Reactions: Allergies Allergy/AdvReac Type Severity Reaction Status Date / Time No Known Allergies Allergy Verified 04/16/17 12:12 Home Medications: Home Meds Multivitamin [Daily Multiple Vitamin] 1 tab PO DAILY 12/01/15 [History] Calcium Polycarbophil [Fiber Tabs] 1 tab PO DAILY 04/13/17 [History] Fish Oil/[place]-3 Fatty Acids [Fish Oil] 1 each PO DAILY 04/13/17 [History] Pantoprazole Sodium [Protonix] 20 mg PO DAILY #30 tablet. 04/13/17 [Rx] Past Medical History Other HEENT History: wears glasses Cardiovascular History: Reports: None, Other (See Below) Respiratory History: Reports: None Gastrointestinal History: Reports: None Genitourinary History: Reports: Renal Calculus Musculoskeletal History: Reports: Arthritis, Back Pain, Chronic, Neck Pain, Chronic Neurological History: Reports: None Psychiatric History: Reports: None Endocrine/Metabolic History: Reports: Obesity/BMI 30+ Hematologic History: Reports: None Immunologic History: Reports: None Oncologic (Cancer) History: Reports: None Dermatologic History: Reports: None - Infectious Disease History Infectious Disease History: Reports: Chicken Pox, Measles - Past Surgical History Head Surgeries/Procedures: Reports: None HEENT Surgical History: Reports: Adenoidectomy, Oral Surgery, Tonsillectomy Respiratory Surgical History: Reports: None GI Surgical History: Reports: Colonoscopy Male Surgical History: Reports: Kidney Stone Extraction, Lithotripsy (ESWL) Endocrine Surgical History: Reports: None Neurological Surgical History: Reports: None Oncologic Surgical History: Reports: None Dermatological Surgical History: Reports: None - History Comment History Comment: etoh "2x a day" per ER note, but the patient states that he has not had ETOH in one year. Social & Family History - Family History Family Medical History: Noncontributory - Tobacco Use Smoking Status *Q: Never Smoker Second Hand Smoke Exposure: No - Caffeine Use Caffeine Use: Reports: Coffee, Soda - Alcohol Use Days Per Week of Alcohol Use: 1 Number of Drinks Per Day: 2 Total Drinks Per Week: 2 - Recreational Drug Use Recreational Drug Use: No Drug Use in Last 12 Months: No H&P Review of Systems - Review of Systems: Review Of Systems: DRU reveals no pertinent complaints other than HPI. Exam - Exam Exam: See Below - Vital Signs Vital Signs: Last Vital Signs Temp 37.4 C 04/16/17 16:50 Pulse 75 04/16/17 16:50 Resp 18 04/16/17 16:50 BP 117/69 04/16/17 16:50 Pulse Ox 99 04/16/17 16:50 Weight: 107.91 kg - Exam General: Alert, Oriented HEENT: Conjunctiva Clear, Posterior Pharynx Clear Neck: Supple Lungs: Normal Respiratory Effort Cardiovascular: Regular Rate GI/Abdominal Exam: Soft, Non-Tender, No Distention, No Mass - Patient Data Lab Results Last 24 hrs: Laboratory Results - last 24 hr 04/16/17 Range/Units 15:05 Urine Color YELLOW Urine Appearance CLEAR Urine pH 6.5 (5.0-8.0) Ur Specific [place] 1.010 (1.001-1.035) Urine Protein NEGATIVE (NEGATIVE) mg/dL Urine Glucose (UA) NEGATIVE (NEGATIVE) mg/dL Urine Ketones NEGATIVE (NEGATIVE) mg/dL Urine Occult Blood NEGATIVE (NEGATIVE) Urine Nitrite NEGATIVE (NEGATIVE) Urine Bilirubin NEGATIVE (NEGATIVE) Urine Urobilinogen 0.2 (<2.0) EU/dL Ur Leukocyte Esterase NEGATIVE (NEGATIVE) Urine RBC 0-1 (0-2/HPF) Urine WBC 0-1 (0-5/HPF) Ur Epithelial Cells RARE (NONE-FEW) Urine Bacteria RARE (NEGATIVE) Result Diagrams: 04/16/17 12:01 04/16/17 12:01 Consult PN Assessment/Plan Procedures: Procedures ASSAY OF LIPASE (08/29/13) BLOOD TYPING SEROLOGIC ABO (04/13/17) BLOOD TYPING SEROLOGIC RH(D) (04/13/17) COMPLETE CBC W/AUTO DIFF WBC (04/13/17) COMPREHEN METABOLIC PANEL (04/13/17) CT ABD & PELV W/CONTRAST (08/29/13) CT ABD & PELVIS W/O CONTRAST (11/29/15) CYSTOSCOPY AND TREATMENT (12/02/15) DRAIN/INJ JOINT/BURSA W/O US (11/16/16) ELECTROCARDIOGRAM TRACING (12/02/15) EMERGENCY DEPT VISIT (04/13/17) EMERGENCY DEPT VISIT (09/28/16) EMERGENCY DEPT VISIT (11/29/15) EMERGENCY DEPT VISIT (09/15/15) EMERGENCY DEPT VISIT (02/16/14) FRAGMENTING OF KIDNEY STONE (12/02/15) HELICOBACTER PYLORI ANTIBODY (04/13/17) HYDRATE IV INFUSION ADD-ON (11/29/15) HYDRATION IV INFUSION INIT (04/13/17) NEEDLE LOCALIZATION BY XRAY (11/16/16) PROTHROMBIN TIME (04/13/17) RBC ANTIBODY SCREEN (04/13/17) ROUTINE VENIPUNCTURE (04/13/17) THER/PROPH/DIAG INJ IV PUSH (11/29/15) THER/PROPH/DIAG INJ SC/IM (09/28/16) THROMBOPLASTIN TIME PARTIAL (04/13/17) TISSUE EXAM BY PATHOLOGIST (12/21/14) TX/PRO/DX INJ NEW DRUG ADDON (11/29/15) URINALYSIS AUTO W/SCOPE (11/29/15) X-RAY EXAM HIP UNI 2-3 VIEWS (09/28/16) X-RAY EXAM OF ABDOMEN (12/02/15) X-RAY EXAM UNILAT RIBS/CHEST (07/25/14) (1) GI bleed SNOMED Code(s): 86187269 Code(s): K92.2 - GASTROINTESTINAL HEMORRHAGE, UNSPECIFIED Current Visit: Yes (2) Syncopal seizure SNOMED Code(s): 527399137 Code(s): R55 - SYNCOPE AND COLLAPSE; R56.9 - UNSPECIFIED CONVULSIONS Current Visit: Yes Problem List Initiated/Reviewed/Updated: Yes Plan: Continue with q 6hr hemoglobin checks. Po protonix for possible upper GI source. Will discuss his case with anesthesia tomorrow regarding a possible EGD. I am concerned that he may have had a seizure given his decorticate posturing, face droop, incontinence in office. Unsure if it would be safe from an anesthesia stand point to perform an EGD until he has had neurologic celarance. Will discuss with primary team and anesthesia He is doing well now. Keep NPO, but ok to have ice chips and sips with meds. Will continue to follow.
[2017-04-16] MEDS: Sodium Chloride 0.9% 1,000 ML IV SCH (23:57)
[2017-04-17 05:55] LABS: CHLORIDE,CL 113 mmol/L (98-110); SODIUM,NA 139 mmol/L (136-146)
[2017-04-17] MEDS: Sodium Chloride 0.9% 1,000 ML IV SCH ×2 (08:08→15:45)
--- NOTE | 2017-04-17 08:19 | PCM.SURGPN ---
- General Info Date of Service: 04/17/17 Functional Status: Reports: Pain Controlled, Ambulating, Urinating, Other (No further syncopal episodes. Vitals stable. Denies melena, nausea, vomiting. ) - Review of Systems General: Reports: No Symptoms Pulmonary: Reports: No Symptoms Cardiovascular: Reports: No Symptoms Gastrointestinal: Reports: No Symptoms Genitourinary: Reports: No Symptoms - Patient Data Vitals - Most Recent: Last Vital Signs Temp 37.0 C 04/17/17 04:00 Pulse 86 04/17/17 04:00 Resp 18 04/17/17 04:00 BP 106/72 04/17/17 04:00 Pulse Ox 93 L 04/17/17 04:00 Weight - Most Recent: 107.91 kg I&O - Last 24 Hours: Intake & Output 04/16/17 04/17/17 04/17/17 22:59 06:59 14:59 Intake Total 350 550 Output Total 800 Balance 350 -250 Lab Results Last 24 Hrs: Laboratory Results - last 24 hr 04/16/17 04/17/17 04/17/17 Range/Units 15:05 00:49 05:10 WBC (4.0-11.0) K/uL RBC (4.50-5.90) M/uL Hgb 9.8 L (13.0-17.0) g/dL Hct 29.6 L (38.0-50.0) % MCV (80.0-98.0) fL MCH (27.0-32.0) pg MCHC (31.0-37.0) g/dL RDW Std Deviation (28.0-62.0) fl RDW Coeff of [place] (11.0-15.0) % Plt Count (150-400) K/uL MPV (7.40-12.00) fL Neut % (Auto) (48.0-80.0) % Lymph % (Auto) (16.0-40.0) % [place] % (Auto) (0.0-15.0) % Eos % (Auto) (0.0-7.0) % Baso % (Auto) (0.0-1.5) % Neut # (Auto) (1.4-5.7) K/uL Lymph # (Auto) (0.6-2.4) K/uL [place] # (Auto) (0.0-0.8) K/uL Eos # (Auto) (0.0-0.7) K/uL Baso # (Auto) (0.0-0.1) K/uL Nucleated RBC % /100WBC Nucleated RBCs # K/uL Sodium 139 (136-146) mmol/L Potassium 3.8 (3.5-5.1) mmol/L Chloride 113 H (98-110) mmol/L Carbon Dioxide 18 L (21-31) mmol/L BUN 11 (6.0-23.0) mg/dL Creatinine 0.8 (0.6-1.5) mg/dL Est Cr Clr Drug Dosing 97.59 mL/min Estimated GFR (MDRD) > 60.0 ml/min Glucose 83 (60-110) mg/dL Calcium 8.4 L (8.8-10.8) mg/dL Urine Color YELLOW Urine Appearance CLEAR Urine pH 6.5 (5.0-8.0) Ur Specific [place] 1.010 (1.001-1.035) Urine Protein NEGATIVE (NEGATIVE) mg/dL Urine Glucose (UA) NEGATIVE (NEGATIVE) mg/dL Urine Ketones NEGATIVE (NEGATIVE) mg/dL Urine Occult Blood NEGATIVE (NEGATIVE) Urine Nitrite NEGATIVE (NEGATIVE) Urine Bilirubin NEGATIVE (NEGATIVE) Urine Urobilinogen 0.2 (<2.0) EU/dL Ur Leukocyte Esterase NEGATIVE (NEGATIVE) Urine RBC 0-1 (0-2/HPF) Urine WBC 0-1 (0-5/HPF) Ur Epithelial Cells RARE (NONE-FEW) Urine Bacteria RARE (NEGATIVE) 04/17/17 Range/Units 05:10 WBC 7.00 (4.0-11.0) K/uL RBC 3.61 L (4.50-5.90) M/uL Hgb 10.2 L (13.0-17.0) g/dL Hct 30.6 L (38.0-50.0) % MCV 84.8 (80.0-98.0) fL MCH 28.3 (27.0-32.0) pg MCHC 33.3 (31.0-37.0) g/dL RDW Std Deviation 44.1 (28.0-62.0) fl RDW Coeff of [place] 15 (11.0-15.0) % Plt Count 318 (150-400) K/uL MPV 10.10 (7.40-12.00) fL Neut % (Auto) 65.4 (48.0-80.0) % Lymph % (Auto) 22.4 (16.0-40.0) % [place] % (Auto) 11.1 (0.0-15.0) % Eos % (Auto) 0.7 (0.0-7.0) % Baso % (Auto) 0.4 (0.0-1.5) % Neut # (Auto) 4.6 (1.4-5.7) K/uL Lymph # (Auto) 1.6 (0.6-2.4) K/uL [place] # (Auto) 0.8 (0.0-0.8) K/uL Eos # (Auto) 0.1 (0.0-0.7) K/uL Baso # (Auto) 0.0 (0.0-0.1) K/uL Nucleated RBC % 0.0 /100WBC Nucleated RBCs # 0 K/uL Sodium (136-146) mmol/L Potassium (3.5-5.1) mmol/L Chloride (98-110) mmol/L Carbon Dioxide (21-31) mmol/L BUN (6.0-23.0) mg/dL Creatinine (0.6-1.5) mg/dL Est Cr Clr Drug Dosing mL/min Estimated GFR (MDRD) ml/min Glucose (60-110) mg/dL Calcium (8.8-10.8) mg/dL Urine Color Urine Appearance Urine pH (5.0-8.0) Ur Specific [place] (1.001-1.035) Urine Protein (NEGATIVE) mg/dL Urine Glucose (UA) (NEGATIVE) mg/dL Urine Ketones (NEGATIVE) mg/dL Urine Occult Blood (NEGATIVE) Urine Nitrite (NEGATIVE) Urine Bilirubin (NEGATIVE) Urine Urobilinogen (<2.0) EU/dL Ur Leukocyte Esterase (NEGATIVE) Urine RBC (0-2/HPF) Urine WBC (0-5/HPF) Ur Epithelial Cells (NONE-FEW) Urine Bacteria (NEGATIVE) Med Orders - Current: Current Medications Pantoprazole Sodium 80 mg/ (Sodium Chloride) 50 mls @ 5 mls/hr IV Q10H DIANE Stop: 04/19/17 16:16 Last Admin: 04/17/17 03:32 Dose: 5 mls/hr Sodium Chloride (Normal Saline) 1,000 mls @ 125 mls/hr IV ASDIRECTED DIANE Last Admin: 04/17/17 08:08 Dose: 125 mls/hr Ondansetron HCl (Zofran) 4 mg IVPUSH Q4H PRN PRN Reason: Nausea Discontinued Medications Sodium Chloride (Normal Saline) 1,000 mls @ 500 mls/hr IV STAT ONE Stop: 04/16/17 16:33 Last Admin: 04/16/17 15:02 Dose: 500 mls/hr Iopamidol (Isovue Multipack-370 (76%)) 100 ml IVPUSH ONETIME STA Stop: 04/16/17 13:32 Last Admin: 04/16/17 13:31 Dose: 100 ml Pantoprazole Sodium (Protonix Iv) 80 mg IVPUSH .BOLUS ONE Stop: 04/16/17 15:28 Last Admin: 04/16/17 15:45 Dose: 80 mg - Exam General: Alert, Oriented HEENT: Pupils Equal Lungs: Clear to Auscultation, Normal Respiratory Effort Cardiovascular: Regular Rate, Regular Rhythm GI/Abdominal Exam: Soft, Non-Tender, No Distention, No Mass Extremities: Normal Inspection, Normal Range of Motion Skin: Warm, Dry, Intact Neurological: No New Focal Deficit - Problem List & Annotations (1) GI bleed SNOMED Code(s): 11690505 Code(s): K92.2 - GASTROINTESTINAL HEMORRHAGE, UNSPECIFIED Status: Acute Current Visit: Yes (2) Syncopal seizure SNOMED Code(s): 085350269 Code(s): R55 - SYNCOPE AND COLLAPSE; R56.9 - UNSPECIFIED CONVULSIONS Status : Acute Current Visit: Yes - Problem List Review Problem List Initiated/Reviewed/Updated: Yes - My Orders Last 24 Hours: Active Orders 24 hr Category Date Time Status Antiembolic Devices [RC] PER UNIT ROUTINE Care 04/16/17 15:25 Active Up ad [place] [RC] ASDIRECTED Care 04/16/17 15:24 Active VTE/DVT Education [RC] PER UNIT ROUTINE Care 04/16/17 15:24 Active Vital Signs [RC] Q4H Care 04/16/17 15:24 Active Nothing per Oral Now Diet [DIET] Diet 04/16/17 Dinner Active HEMOGLOBIN/HEMATOCRIT,HH [HEME] Routine Lab 04/17/17 16:00 Ordered Ondansetron [Zofran] Med 04/16/17 15:24 Active 4 mg IVPUSH Q4H PRN Pantoprazole [ProTONIX IV] 80 mg Med 04/16/17 16:15 Active Sodium Chloride 0.9% [Normal Saline] 50 ml IV Q10H Sodium Chloride 0.9% [Normal Saline] 1,000 ml Med 04/16/17 15:45 Active IV ASDIRECTED Sequential Compression Device [OM.PC] Per Unit Routine Oth 04/16/17 15:24 Ordered Resuscitation Status Routine Resus Stat 04/16/17 15:24 Ordered Medication Orders Pantoprazole Sodium 80 mg/ (Sodium Chloride) 50 mls @ 5 mls/hr IV Q10H DIANE Stop: 04/19/17 16:16 Last Admin: 04/17/17 03:32 Dose: 5 mls/hr Infusion: 04/17/17 02:46 Dose: 5 mls/hr Admin: 04/16/17 16:46 Dose: 5 mls/hr Sodium Chloride (Normal Saline) 1,000 mls @ 125 mls/hr IV ASDIRECTED DIANE Last Admin: 04/17/17 08:08 Dose: 125 mls/hr Infusion: 04/17/17 07:57 Dose: 125 mls/hr Admin: 04/16/17 23:57 Dose: 125 mls/hr Ondansetron HCl (Zofran) 4 mg IVPUSH Q4H PRN PRN Reason: Nausea - Plan Plan (Free Text/Narrative):: -Patient was transfused 2 units yesterday but his hemoglobin only came up one gram. No signs of ongoing GI bleed. Ok to have clears today. Discussed his case with anesthesia. Most likely this was a purely syncopal episode and should be ok to undergo an EGD. Will take patient to OR tomorrow morning for diagnostic EGD with biopsy. We had previously discussed the procedure, as well as the benefits and risks. Patient verbalized understanding and wishes to proceed. Continue with protonix and close hemoglobin monitoring.
--- NOTE | 2017-04-17 08:37 | PCM.PREANE ---
Preanesthetic Assessment - Anesthesia/Transfusion/Family Hx Anesthesia History: Prior Anesthesia Without Reaction Other Type of Anesthesia Reaction Comment: Patient's brother has delayed emergence. Otherwise there are no complicatio Family History of Anesthesia Reaction: No Transfusion History: Prior Transfusion Without Reaction - Review of Systems General: Weakness Pulmonary: No Symptoms Cardiovascular: No Symptoms Gastrointestinal: Melena Neurological: Syncope - Physical Assessment NPO Status Date: 04/16/17 O2 Sat by Pulse Oximetry: 93 Respiratory Rate: 18 Temperature: 37.7 C Vital Signs: Last Vital Signs Temp 37.0 C 04/17/17 04:00 Pulse 86 04/17/17 04:00 Resp 18 04/17/17 04:00 BP 106/72 04/17/17 04:00 Pulse Ox 93 L 04/17/17 04:00 Height: 1.78 m Weight: 107.91 kg ASA Class: 3 Mental Status: Alert & Oriented x3 Airway Class: Mallampati = 2 Dentition: Reports: Broken Tooth/Teeth, Missing Tooth/Teeth ROM/Head Extension: Full Lungs: Clear to Auscultation, Normal Respiratory Effort Cardiovascular: Regular Rate, Regular Rhythm - Lab Values: Laboratory Last Values WBC 7.00 K/uL (4.0-11.0) 04/17/17 05:10 RBC 3.61 M/uL (4.50-5.90) L 04/17/17 05:10 Hgb 10.2 g/dL (13.0-17.0) L 04/17/17 05:10 Hct 30.6 % (38.0-50.0) L 04/17/17 05:10 MCV 84.8 fL (80.0-98.0) 04/17/17 05:10 MCH 28.3 pg (27.0-32.0) 04/17/17 05:10 MCHC 33.3 g/dL (31.0-37.0) 04/17/17 05:10 RDW Std Deviation 44.1 fl (28.0-62.0) 04/17/17 05:10 RDW Coeff of [place] 15 % (11.0-15.0) 04/17/17 05:10 Plt Count 318 K/uL (150-400) 04/17/17 05:10 MPV 10.10 fL (7.40-12.00) 04/17/17 05:10 Neut % (Auto) 65.4 % (48.0-80.0) 04/17/17 05:10 Lymph % (Auto) 22.4 % (16.0-40.0) 04/17/17 05:10 [place] % (Auto) 11.1 % (0.0-15.0) 04/17/17 05:10 Eos % (Auto) 0.7 % (0.0-7.0) 04/17/17 05:10 Baso % (Auto) 0.4 % (0.0-1.5) 04/17/17 05:10 Neut # (Auto) 4.6 K/uL (1.4-5.7) 04/17/17 05:10 Lymph # (Auto) 1.6 K/uL (0.6-2.4) 04/17/17 05:10 [place] # (Auto) 0.8 K/uL (0.0-0.8) 04/17/17 05:10 Eos # (Auto) 0.1 K/uL (0.0-0.7) 04/17/17 05:10 Baso # (Auto) 0.0 K/uL (0.0-0.1) 04/17/17 05:10 Nucleated RBC % 0.0 /100WBC 04/17/17 05:10 Nucleated RBCs # 0 K/uL 04/17/17 05:10 INR 1.01 (0.86-1.11) 04/16/17 12:01 Sodium 139 mmol/L (136-146) 04/17/17 05:10 Potassium 3.8 mmol/L (3.5-5.1) 04/17/17 05:10 Chloride 113 mmol/L (98-110) H 04/17/17 05:10 Carbon Dioxide 18 mmol/L (21-31) L 04/17/17 05:10 BUN 11 mg/dL (6.0-23.0) 04/17/17 05:10 Creatinine 0.8 mg/dL (0.6-1.5) 04/17/17 05:10 Est Cr Clr Drug Dosing 97.59 mL/min 04/17/17 05:10 Estimated GFR (MDRD) > 60.0 ml/min 04/17/17 05:10 Glucose 83 mg/dL (60-110) 04/17/17 05:10 Calcium 8.4 mg/dL (8.8-10.8) L 04/17/17 05:10 Total Bilirubin 0.6 mg/dL (0.1-1.5) 04/16/17 12:01 AST 16 IU/L (5-40) 04/16/17 12:01 ALT 21 IU/L (8-54) 04/16/17 12:01 Alkaline Phosphatase 34 (40-150) L 04/16/17 12:01 Troponin I < 0.10 NG/ML (0.0-0.29) 04/16/17 12:01 Total Protein 5.7 g/dL (6.0-8.0) L 04/16/17 12:01 Albumin 3.8 g/dL (3.4-4.8) 04/16/17 12:01 Globulin 1.9 g/dL (2.0-3.5) L 04/16/17 12:01 Albumin/Globulin Ratio 2.0 (1.3-2.8) 04/16/17 12:01 Urine Color YELLOW 04/16/17 15:05 Urine Appearance CLEAR 04/16/17 15:05 Urine pH 6.5 (5.0-8.0) 04/16/17 15:05 Ur Specific [place] 1.010 (1.001-1.035) 04/16/17 15:05 Urine Protein NEGATIVE mg/dL (NEGATIVE) 04/16/17 15:05 Urine Glucose (UA) NEGATIVE mg/dL (NEGATIVE) 04/16/17 15:05 Urine Ketones NEGATIVE mg/dL (NEGATIVE) 04/16/17 15:05 Urine Occult Blood NEGATIVE (NEGATIVE) 04/16/17 15:05 Urine Nitrite NEGATIVE (NEGATIVE) 04/16/17 15:05 Urine Bilirubin NEGATIVE (NEGATIVE) 04/16/17 15:05 Urine Urobilinogen 0.2 EU/dL (<2.0) 04/16/17 15:05 Ur Leukocyte Esterase NEGATIVE (NEGATIVE) 04/16/17 15:05 Urine RBC 0-1 (0-2/HPF) 04/16/17 15:05 Urine WBC 0-1 (0-5/HPF) 04/16/17 15:05 Ur Epithelial Cells RARE (NONE-FEW) 04/16/17 15:05 Urine Bacteria RARE (NEGATIVE) 04/16/17 15:05 Blood Type O POSITIVE 04/16/17 12:01 Antibody Screen NEGATIVE 04/16/17 12:01 Crossmatch See Detail 04/16/17 12:01 - Allergies Allergies/Adverse Reactions: Allergies Allergy/AdvReac Type Severity Reaction Status Date / Time No Known Allergies Allergy Verified 04/16/17 12:12 - Blood Blood Available: Yes - Anesthesia Plan Pre-Op Medication Ordered: None - Acknowledgements Anesthesia Type Planned: MAC Pt an Appropriate Candidate for the Planned Anesthesia: Yes Alternatives and Risks of Anesthesia Discussed w Pt/Guardian: Yes Pt/Guardian Understands and Agrees with Anesthesia Plan: Yes Additional Comments: possible seizure prior to admission, has been transfused 2 units prbc, PreAnesthesia Questionnaire Other HEENT History: wears glasses Cardiovascular History: Reports: None, Other (See Below) Respiratory History: Reports: None Gastrointestinal History: Reports: None Genitourinary History: Reports: Renal Calculus Musculoskeletal History: Reports: Arthritis, Back Pain, Chronic, Neck Pain, Chronic Neurological History: Reports: None Psychiatric History: Reports: None Endocrine/Metabolic History: Reports: Obesity/BMI 30+ Hematologic History: Reports: None Immunologic History: Reports: None Oncologic (Cancer) History: Reports: None Dermatologic History: Reports: None - Infectious Disease History Infectious Disease History: Reports: Chicken Pox, Measles - Past Surgical History Head Surgeries/Procedures: Reports: None HEENT Surgical History: Reports: Adenoidectomy, Oral Surgery, Tonsillectomy Respiratory Surgical History: Reports: None GI Surgical History: Reports: Colonoscopy Male Surgical History: Reports: Kidney Stone Extraction, Lithotripsy (ESWL) Endocrine Surgical History: Reports: None Neurological Surgical History: Reports: None Oncologic Surgical History: Reports: None Dermatological Surgical History: Reports: None - History Comment History Comment: etoh "2x a day" per ER note, but the patient states that he has not had ETOH in one year. - SUBSTANCE USE Smoking Status *Q: Never Smoker Second Hand Smoke Exposure: No Days Per Week of Alcohol Use: 1 Number of Drinks Per Day: 2 Total Drinks Per Week: 2 Recreational Drug Use History: No - HOME MEDS Home Medications: Home Meds Multivitamin [Daily Multiple Vitamin] 1 tab PO DAILY 12/01/15 [History] Calcium Polycarbophil [Fiber Tabs] 1 tab PO DAILY 04/13/17 [History] Fish Oil/[place]-3 Fatty Acids [Fish Oil] 1 each PO DAILY 04/13/17 [History] Pantoprazole Sodium [Protonix] 20 mg PO DAILY #30 tablet. 04/13/17 [Rx] - CURRENT (IN HOUSE) MEDS Current Meds: Current Medications Pantoprazole Sodium 80 mg/ (Sodium Chloride) 50 mls @ 5 mls/hr IV Q10H DIANE Stop: 04/19/17 16:16 Last Admin: 04/17/17 03:32 Dose: 5 mls/hr Sodium Chloride (Normal Saline) 1,000 mls @ 125 mls/hr IV ASDIRECTED DIANE Last Admin: 04/17/17 08:08 Dose: 125 mls/hr Ondansetron HCl (Zofran) 4 mg IVPUSH Q4H PRN PRN Reason: Nausea Discontinued Medications Sodium Chloride (Normal Saline) 1,000 mls @ 500 mls/hr IV STAT ONE Stop: 04/16/17 16:33 Last Admin: 04/16/17 15:02 Dose: 500 mls/hr Iopamidol (Isovue Multipack-370 (76%)) 100 ml IVPUSH ONETIME STA Stop: 04/16/17 13:32 Last Admin: 04/16/17 13:31 Dose: 100 ml Pantoprazole Sodium (Protonix Iv) 80 mg IVPUSH .BOLUS ONE Stop: 04/16/17 15:28 Last Admin: 04/16/17 15:45 Dose: 80 mg
--- NOTE | 2017-04-17 14:57 | PCM.PN ---
- General Info Date of Service: 04/17/17 Subjective Update: 60-year-old male in a service secondary to a GI bleed now on day 2. Patient's hemoglobin and hematocrits were trended overnight after receiving 2 units of packed red blood cells. His hemoglobin has stabilized at 10.2. He is not showing any signs of acute GI bleed. He denies any headaches, blurry vision, dizziness, lightheadedness, abdominal pain, blood in stools. However, he has not had a bowel movement since being here. He has been evaluated by surgery, who would like to do an upper GI scope while in as an inpatient. This may be done tomorrow. - Review of Systems General: Reports: Other (Negative review of systems other than those listed in the history of present illness) - Patient Data Vitals - Most Recent: Last Vital Signs Temp 36.6 C 04/17/17 12:00 Pulse 85 04/17/17 12:00 Resp 16 04/17/17 12:00 BP 128/80 04/17/17 12:00 Pulse Ox 96 04/17/17 12:00 Weight - Most Recent: 107.91 kg I&O - Last 24 Hours: Intake & Output 04/16/17 04/17/17 04/17/17 22:59 06:59 14:59 Intake Total 350 550 Output Total 800 Balance 350 -250 Lab Results Last 24 Hours: Laboratory Results - last 24 hr 04/16/17 04/17/17 04/17/17 Range/Units 15:05 00:49 05:10 WBC (4.0-11.0) K/uL RBC (4.50-5.90) M/uL Hgb 9.8 L (13.0-17.0) g/dL Hct 29.6 L (38.0-50.0) % MCV (80.0-98.0) fL MCH (27.0-32.0) pg MCHC (31.0-37.0) g/dL RDW Std Deviation (28.0-62.0) fl RDW Coeff of Howard (11.0-15.0) % Plt Count (150-400) K/uL MPV (7.40-12.00) fL Neut % (Auto) (48.0-80.0) % Lymph % (Auto) (16.0-40.0) % [place] % (Auto) (0.0-15.0) % Eos % (Auto) (0.0-7.0) % Baso % (Auto) (0.0-1.5) % Neut # (Auto) (1.4-5.7) K/uL Lymph # (Auto) (0.6-2.4) K/uL [place] # (Auto) (0.0-0.8) K/uL Eos # (Auto) (0.0-0.7) K/uL Baso # (Auto) (0.0-0.1) K/uL Nucleated RBC % /100WBC Nucleated RBCs # K/uL Sodium 139 (136-146) mmol/L Potassium 3.8 (3.5-5.1) mmol/L Chloride 113 H (98-110) mmol/L Carbon Dioxide 18 L (21-31) mmol/L BUN 11 (6.0-23.0) mg/dL Creatinine 0.8 (0.6-1.5) mg/dL Est Cr Clr Drug Dosing 97.59 mL/min Estimated GFR (MDRD) > 60.0 ml/min Glucose 83 (60-110) mg/dL Calcium 8.4 L (8.8-10.8) mg/dL Urine Color YELLOW Urine Appearance CLEAR Urine pH 6.5 (5.0-8.0) Ur Specific [place] 1.010 (1.001-1.035) Urine Protein NEGATIVE (NEGATIVE) mg/dL Urine Glucose (UA) NEGATIVE (NEGATIVE) mg/dL Urine Ketones NEGATIVE (NEGATIVE) mg/dL Urine Occult Blood NEGATIVE (NEGATIVE) Urine Nitrite NEGATIVE (NEGATIVE) Urine Bilirubin NEGATIVE (NEGATIVE) Urine Urobilinogen 0.2 (<2.0) EU/dL Ur Leukocyte Esterase NEGATIVE (NEGATIVE) Urine RBC 0-1 (0-2/HPF) Urine WBC 0-1 (0-5/HPF) Ur Epithelial Cells RARE (NONE-FEW) Urine Bacteria RARE (NEGATIVE) 04/17/17 Range/Units 05:10 WBC 7.00 (4.0-11.0) K/uL RBC 3.61 L (4.50-5.90) M/uL Hgb 10.2 L (13.0-17.0) g/dL Hct 30.6 L (38.0-50.0) % MCV 84.8 (80.0-98.0) fL MCH 28.3 (27.0-32.0) pg MCHC 33.3 (31.0-37.0) g/dL RDW Std Deviation 44.1 (28.0-62.0) fl RDW Coeff of Howard 15 (11.0-15.0) % Plt Count 318 (150-400) K/uL MPV 10.10 (7.40-12.00) fL Neut % (Auto) 65.4 (48.0-80.0) % Lymph % (Auto) 22.4 (16.0-40.0) % [place] % (Auto) 11.1 (0.0-15.0) % Eos % (Auto) 0.7 (0.0-7.0) % Baso % (Auto) 0.4 (0.0-1.5) % Neut # (Auto) 4.6 (1.4-5.7) K/uL Lymph # (Auto) 1.6 (0.6-2.4) K/uL [place] # (Auto) 0.8 (0.0-0.8) K/uL Eos # (Auto) 0.1 (0.0-0.7) K/uL Baso # (Auto) 0.0 (0.0-0.1) K/uL Nucleated RBC % 0.0 /100WBC Nucleated RBCs # 0 K/uL Sodium (136-146) mmol/L Potassium (3.5-5.1) mmol/L Chloride (98-110) mmol/L Carbon Dioxide (21-31) mmol/L BUN (6.0-23.0) mg/dL Creatinine (0.6-1.5) mg/dL Est Cr Clr Drug Dosing mL/min Estimated GFR (MDRD) ml/min Glucose (60-110) mg/dL Calcium (8.8-10.8) mg/dL Urine Color Urine Appearance Urine pH (5.0-8.0) Ur Specific [place] (1.001-1.035) Urine Protein (NEGATIVE) mg/dL Urine Glucose (UA) (NEGATIVE) mg/dL Urine Ketones (NEGATIVE) mg/dL Urine Occult Blood (NEGATIVE) Urine Nitrite (NEGATIVE) Urine Bilirubin (NEGATIVE) Urine Urobilinogen (<2.0) EU/dL Ur Leukocyte Esterase (NEGATIVE) Urine RBC (0-2/HPF) Urine WBC (0-5/HPF) Ur Epithelial Cells (NONE-FEW) Urine Bacteria (NEGATIVE) Med Orders - Current: Current Medications Pantoprazole Sodium 80 mg/ (Sodium Chloride) 50 mls @ 5 mls/hr IV Q10H [facility] Stop: 04/19/17 16:16 Last Admin: 04/17/17 14:00 Dose: 5 mls/hr Sodium Chloride (Normal Saline) 1,000 mls @ 125 mls/hr IV ASDIRECTED DIANE Last Admin: 04/17/17 08:08 Dose: 125 mls/hr Ondansetron HCl (Zofran) 4 mg IVPUSH Q4H PRN PRN Reason: Nausea Discontinued Medications Sodium Chloride (Normal Saline) 1,000 mls @ 500 mls/hr IV STAT ONE Stop: 04/16/17 16:33 Last Admin: 04/16/17 15:02 Dose: 500 mls/hr Iopamidol (Isovue Multipack-370 (76%)) 100 ml IVPUSH ONETIME STA Stop: 04/16/17 13:32 Last Admin: 04/16/17 13:31 Dose: 100 ml Pantoprazole Sodium (Protonix Iv) 80 mg IVPUSH .BOLUS ONE Stop: 04/16/17 15:28 Last Admin: 04/16/17 15:45 Dose: 80 mg - Exam General: Alert, Oriented HEENT: Pupils Equal, Pupils Reactive Neck: Supple Lungs: Clear to Auscultation, Normal Respiratory Effort Cardiovascular: Regular Rate, Regular Rhythm GI/Abdominal Exam: Normal Bowel Sounds, Soft, Non-Tender Extremities: Normal Inspection, Normal Range of Motion, Non-Tender, No Pedal Edema Peripheral Pulses: 3+: Dorsalis Pedis (L), Dorsalis Pedis (R) Skin: Warm Psy/Mental Status: Alert, Normal Affect, Normal Mood - Problem List Review Problem List Initiated/Reviewed/Updated: Yes - My Orders Last 24 Hours: My Active Orders 04/16/17 15:24 Up ad Dayana [RC] ASDIRECTED VTE/DVT Education [RC] PER UNIT ROUTINE Vital Signs [RC] Q4H Ondansetron [Zofran] 4 mg IVPUSH Q4H PRN Sequential Compression Device [OM.PC] Per Unit Routine Resuscitation Status Routine 04/16/17 15:25 Antiembolic Devices [RC] PER UNIT ROUTINE 04/16/17 15:45 Sodium Chloride 0.9% [Normal Saline] 1,000 ml IV ASDIRECTED 04/16/17 16:15 Pantoprazole [ProTONIX IV] 80 mg Sodium Chloride 0.9% [Normal Saline] 50 ml IV Q10H 04/17/17 16:00 HEMOGLOBIN/HEMATOCRIT,HH [HEME] Routine - Plan Plan:: Assessment #1. GI bleed #2. Symptomatic anemia secondary to #1-resolved #3. Syncopal episode prior to admission Plan #1. Recheck hemoglobin and hematocrit today in the evening. Proceed accordingly #2. Follow-up on surgery recommendations based on upper GI endoscopy #3. Anticipate discharge tomorrow
[2017-04-18] MEDS: Sodium Chloride 0.9% 1,000 ML IV SCH (01:44)
[2017-04-18 05:57] LABS: CHLORIDE,CL 112 mmol/L (98-110); SODIUM,NA 140 mmol/L (136-146)
--- NOTE | 2017-04-18 11:06 | PCM.PN ---
- General Info Date of Service: 04/18/17 Admission Dx/Problem (Free Text): Patient's hemodynamic status is stable. Talking to the patient's morning, he has no complaints. He tells me that he did have a bowel movement which she described as dark. Hemoglobin has stabilized at 10.3 this morning. Surgery has come by and plans to do an upper GI scope this afternoon. Patient continues to be a pantoprazole drip. Patient denies any fevers chills dizziness lightheadedness abdominal pain. - Review of Systems General: Reports: Other (Review of systems negative except as stated in history of present illness) - Patient Data Vitals - Most Recent: Last Vital Signs Temp 37.0 C 04/18/17 04:00 Pulse 78 04/18/17 07:58 Resp 12 04/18/17 07:58 BP 129/72 04/18/17 07:58 Pulse Ox 94 L 04/18/17 07:58 Weight - Most Recent: 107.91 kg I&O - Last 24 Hours: Intake & Output 04/17/17 04/18/17 04/18/17 22:59 06:59 14:59 Intake Total 1650 Output Total 600 150 Balance 1050 -150 Lab Results Last 24 Hours: Laboratory Results - last 24 hr 04/17/17 04/18/17 04/18/17 Range/Units 16:02 04:55 04:55 WBC 5.68 (4.0-11.0) K/uL RBC 3.59 L (4.50-5.90) M/uL Hgb 10.1 L 10.3 L (13.0-17.0) g/dL Hct 30.7 L 30.6 L (38.0-50.0) % MCV 85.2 (80.0-98.0) fL MCH 28.7 (27.0-32.0) pg MCHC 33.7 (31.0-37.0) g/dL RDW Std Deviation 44.8 (28.0-62.0) fl RDW Coeff of Howard 15 (11.0-15.0) % Plt Count 334 (150-400) K/uL MPV 10.20 (7.40-12.00) fL Neut % (Auto) 58.1 (48.0-80.0) % Lymph % (Auto) 26.4 (16.0-40.0) % [place] % (Auto) 13.2 (0.0-15.0) % Eos % (Auto) 1.8 (0.0-7.0) % Baso % (Auto) 0.5 (0.0-1.5) % Neut # (Auto) 3.3 (1.4-5.7) K/uL Lymph # (Auto) 1.5 (0.6-2.4) K/uL [place] # (Auto) 0.8 (0.0-0.8) K/uL Eos # (Auto) 0.1 (0.0-0.7) K/uL Baso # (Auto) 0.0 (0.0-0.1) K/uL Nucleated RBC % 0.0 /100WBC Nucleated RBCs # 0 K/uL Sodium 140 (136-146) mmol/L Potassium 3.5 (3.5-5.1) mmol/L Chloride 112 H (98-110) mmol/L Carbon Dioxide 20 L (21-31) mmol/L BUN 8 (6.0-23.0) mg/dL Creatinine 0.9 (0.6-1.5) mg/dL Est Cr Clr Drug Dosing 86.74 mL/min Estimated GFR (MDRD) > 60.0 ml/min Glucose 86 (60-110) mg/dL Calcium 8.4 L (8.8-10.8) mg/dL Med Orders - Current: Current Medications Pantoprazole Sodium 80 mg/ (Sodium Chloride) 50 mls @ 5 mls/hr IV Q10H [facility] Stop: 04/19/17 16:16 Last Admin: 04/18/17 08:32 Dose: 5 mls/hr Ondansetron HCl (Zofran) 4 mg IVPUSH Q4H PRN PRN Reason: Nausea Discontinued Medications Sodium Chloride (Normal Saline) 1,000 mls @ 500 mls/hr IV STAT ONE Stop: 04/16/17 16:33 Last Admin: 04/16/17 15:02 Dose: 500 mls/hr Sodium Chloride (Normal Saline) 1,000 mls @ 125 mls/hr IV ASDIRECTED [facility] Last Admin: 04/18/17 01:44 Dose: 125 mls/hr Iopamidol (Isovue Multipack-370 (76%)) 100 ml IVPUSH ONETIME STA Stop: 04/16/17 13:32 Last Admin: 04/16/17 13:31 Dose: 100 ml Pantoprazole Sodium (Protonix Iv) 80 mg IVPUSH .BOLUS ONE Stop: 04/16/17 15:28 Last Admin: 04/16/17 15:45 Dose: 80 mg - Exam General: Alert, Oriented, Cooperative Neck: Supple Lungs: Clear to Auscultation, Normal Respiratory Effort Cardiovascular: Regular Rate, Regular Rhythm GI/Abdominal Exam: Normal Bowel Sounds, Soft, Non-Tender, No Organomegaly Extremities: Normal Inspection, Normal Range of Motion, No Pedal Edema Peripheral Pulses: 3+: Dorsalis Pedis (L), Dorsalis Pedis (R) Skin: Warm Psy/Mental Status: Alert, Normal Affect, Normal Mood - Problem List Review Problem List Initiated/Reviewed/Updated: Yes - Plan Plan:: Assessment #1. GI bleed #2. Symptomatic anemia secondary to #1-resolved #3. Syncopal episode prior to admission Plan #1. Follow-up on recommendations from surgery after the GI scope. Patient may be able to get discharged today. #2. Discontinue the pantoprazole drip once it's been 72 hours. Discontinue IV fluids.
[2017-04-18] MEDS ORDERED: Midazolam 1 MG/ML 2 ML SDV ONE (13:34)
[2017-04-18] MEDS ORDERED: Propofol 200 MG/20 ML SDV ONE ×2 (13:34→14:02)
--- NOTE | 2017-04-18 14:39 | PCM.OPNOTE ---
- General Post-Op/Procedure Note Date of Surgery/Procedure: 04/18/17 Operative Procedure(s): EGD with biopsy Findings: Thickened area at the distal aspect of the first portion of the duodenum. Unable to pass scope past this. No stigmata of bleeding in the duodenal bulb. Mild gastritis. Otherwise normal. Pre Op Diagnosis: GI bleed Post-Op Diagnosis: Thickened stenosed area of the first portion of the duodenum Anesthesia Technique: MAC Primary Surgeon: Svetlana Styles Condition: Fair Free Text/Narrative:: Intake & Output 04/17/17 04/18/17 04/18/17 22:59 06:59 14:59 Intake Total 1650 Output Total 600 Balance 1050
--- NOTE | 2017-04-18 14:49 | PCM.SN ---
- Free Text/Narrative Note: Patient had an EGD performed today. He appears to have a thickened area at the transition point from the first to second portion of the duodenum. I was unable to transverse this area with my scope. There was no evidence of bleeding at this site. I took four quadrant biopsies of the thickened area. The site was hemostatic at the end of the case. He could have an ulcer just distal to this that is causing his bleeding. Biopsies were taken of the stomach as well to check for H pylori. He had some mild gastritis but no ulcers in the stomach. The patient tolerated the procedure well. I would keep the patient overnight and allow him to advance his diet to regular. I would transition him to pantoprazole 40 mg daily. If his hemoglobin is stable he can go home tomorrow. I will follow up with him early next week to schedule him for a colonoscopy. I feel that whatever this thickened area is may be the cause of his GI bleed. Will follow up on his pathology results and make further decisions from there.
--- NOTE | 2017-04-18 15:08 | PCM.POSTAN ---
POST ANESTHESIA ASSESSMENT - MENTAL STATUS Mental Status: Alert, Oriented - VITAL SIGNS Pulse Rate: 83 SaO2: 95 Resp Rate: 18 Blood Pressure: 124/85 - RESPIRATORY Respiratory Status: Respiratory Rate WNL, Airway Patent, O2 Saturation Stable - CARDIOVASCULAR CV Status: Pulse Rate WNL, Blood Pressure Stable - GASTROINTESTINAL GI Status: No Symptoms - PAIN Pain Score: 0 - POST OP HYDRATION Hydration Status: Adequate & Stable
--- NOTE | 2017-04-18 15:50 | PCM.SN ---
- Free Text/Narrative Note: EGD done by Dr. Davis see note. She recommends oral protonix 40 mg and will start clears to advance diet as tolerated today. Keep overnight with labs in morning to make sure there is no further bleeding after procedure.
--- NOTE | 2017-04-18 15:50 | PCM48HPAN ---
Post Anesthesia Note - EVALUATION WITHIN 48HRS OF ANESTHETIC Vital Signs in Normal Range: Yes Patient Participated in Evaluation: Yes Respiratory Function Stable: Yes Airway Patent: Yes Cardiovascular Function Stable: Yes Hydration Status Stable: Yes Pain Control Satisfactory: Yes Nausea and Vomiting Control Satisfactory: Yes Mental Status Recovered: Yes
--- NOTE | 2017-04-18 18:29 | OR ---
SURGEON: SETH MATTHEW MD DATE OF PROCEDURE: 04/18/2017 PREOPERATIVE DIAGNOSIS: GI bleed. POSTOPERATIVE DIAGNOSIS: Thickening of the first portion of the duodenum, mild gastritis. PROCEDURE PERFORMED: Diagnostic EGD with biopsy. ANESTHESIA: Monitored anesthesia care. INSTRUMENT USED: Olympus endoscope. EXTENT OF EXAM: To the first portion of duodenum. PREPARATION: Good. LIMITATIONS: None. INDICATION FOR EXAMINATION: The patient is a 61-year-old male, who recently was diagnosed with a GI bleed. He had a syncopal episode in my office and was admitted to the hospital. He was given 2 units of blood and his hemoglobin went up by 1 g. His hemoglobin has stayed stable since his transfusion. His vital signs remains stable. The decision was made to perform a diagnostic EGD given that his stools were melenic. We discussed the procedure as well as expected perioperative course. We discussed the risks including bleeding and perforation. The patient verbalized understanding and wishes to proceed. PROCEDURE IN DETAIL: The patient was brought into the OR and placed in a beach chair position. A time-out was completed verifying the patient's name, age, date of , allergies, and procedure to be performed. Monitored anesthesia care was induced and a bite block was placed in the patient's mouth. Continuous oxygen was provided via nasal cannula throughout the procedure. After adequate sedation was achieved, a well lubricated endoscope was placed in the patient's mouth and advanced under direct visualization to the first portion of the duodenum. At the first portion of the duodenum, the area was thickened and appeared inflamed and irregular. I was unable to pass my scope past this area. Biopsies were taken circumfrentially in 4 quadrants. These were sent, labeled as duodenal biopsies. The area was monitored closely and found to be hemostatic. Before the biopsies were taken, there were no stigmata of recent bleeding. The scope was then brought into the stomach and a photograph was taken of the pylorus as well as the GE junction. Both appeared normal. The patient appeared to have mild gastritis. Biopsies were taken of the gastric antrum, body, and fundus and sent for H. pylori and histologic testing. The scope was then brought into the distal esophagus and a photograph was taken of the GE junction, which appeared normal. The remainder of the esophageal mucosa was free of pathology. The scope was removed and the procedure terminated. The patient tolerated the procedure well and was taken to PACU in stable condition. LEMEASH / MODL /[id number] PAULINA
--- NOTE | 2017-04-19 08:34 | PCM.SURGPN ---
- General Info Date of Service: 04/19/17 POD#: 1 Post-Op Diagnosis: Thickening of the duodenum (possible ulcer), stenosis Functional Status: Reports: Tolerating Diet, Ambulating, Urinating - Review of Systems General: Reports: No Symptoms Gastrointestinal: Reports: No Symptoms - Patient Data Vitals - Most Recent: Last Vital Signs Temp 36.4 C 04/19/17 08:00 Pulse 83 04/19/17 08:00 Resp 18 04/19/17 08:00 BP 117/60 04/19/17 08:00 Pulse Ox 93 L 04/19/17 08:00 Weight - Most Recent: 107.91 kg I&O - Last 24 Hours: Intake & Output 04/18/17 04/19/17 04/19/17 22:59 06:59 14:59 Intake Total 1151 300 Output Total 530 400 Balance 621 -100 Lab Results Last 24 Hrs: Laboratory Results - last 24 hr 04/19/17 Range/Units 05:10 Hgb 10.8 L (13.0-17.0) g/dL Hct 32.7 L (38.0-50.0) % Med Orders - Current: Current Medications Ondansetron HCl (Zofran) 4 mg IVPUSH Q4H PRN PRN Reason: Nausea Pantoprazole Sodium (Protonix) 40 mg PO DAILY [facility] Last Admin: 04/19/17 08:08 Dose: 40 mg Discontinued Medications Sodium Chloride (Normal Saline) 1,000 mls @ 500 mls/hr IV STAT ONE Stop: 04/16/17 16:33 Last Admin: 04/16/17 15:02 Dose: 500 mls/hr Pantoprazole Sodium 80 mg/ (Sodium Chloride) 50 mls @ 5 mls/hr IV Q10H [facility] Stop: 04/19/17 16:16 Last Admin: 04/18/17 08:32 Dose: 5 mls/hr Sodium Chloride (Normal Saline) 1,000 mls @ 125 mls/hr IV ASDIRECTED [facility] Last Admin: 04/18/17 01:44 Dose: 125 mls/hr Iopamidol (Isovue Multipack-370 (76%)) 100 ml IVPUSH ONETIME STA Stop: 04/16/17 13:32 Last Admin: 04/16/17 13:31 Dose: 100 ml Midazolam HCl (Versed 1 Mg/Ml) Confirm Administered Dose 2 mg .ROUTE .STK-MED ONE Stop: 04/18/17 13:35 Pantoprazole Sodium (Protonix Iv) 80 mg IVPUSH .BOLUS ONE Stop: 04/16/17 15:28 Last Admin: 04/16/17 15:45 Dose: 80 mg Propofol (Diprivan 20 Ml) Confirm Administered Dose 200 mg .ROUTE .STK-MED ONE Stop: 04/18/17 13:35 Propofol (Diprivan 20 Ml) Confirm Administered Dose 200 mg .ROUTE .STK-MED ONE Stop: 04/18/17 14:03 - Exam General: Alert, Oriented, Cooperative Lungs: Normal Respiratory Effort Cardiovascular: Regular Rate GI/Abdominal Exam: Normal Bowel Sounds, Non-Tender, No Distention, No Mass - Problem List & Annotations (1) GI bleed SNOMED Code(s): 80880500 Code(s): K92.2 - GASTROINTESTINAL HEMORRHAGE, UNSPECIFIED Status: Acute Current Visit: Yes (2) Syncopal seizure SNOMED Code(s): 407329730 Code(s): R55 - SYNCOPE AND COLLAPSE; R56.9 - UNSPECIFIED CONVULSIONS Status : Acute Current Visit: Yes - Problem List Review Problem List Initiated/Reviewed/Updated: Yes - My Orders Last 24 Hours: Active Orders 24 hr Category Date Time Status Regular Diet [DIET] Diet 04/18/17 Dinner Active Pantoprazole [ProTONIX] Med 04/19/17 09:00 Active 40 mg PO DAILY Medication Orders Ondansetron HCl (Zofran) 4 mg IVPUSH Q4H PRN PRN Reason: Nausea Pantoprazole Sodium (Protonix) 40 mg PO DAILY [facility] Last Admin: 04/19/17 08:08 Dose: 40 mg - Plan Plan (Free Text/Narrative):: Patient has been stable for 2 days. No syncopal episodes. EGD showed thickening of the duodenum suspicious for a mass or ulcer in the second portion. The area was stenotic due to the thickened tissue. Will treat patient like he has an ulcer with protonix 40mg. Will closely follow up on biopsy results to see if this is inflamed tissue vs malignancy vs H pylori infection. Follow up Sunday with me next week. Still need to perform a diagnostic colonoscopy. Ok to d/c from my standpoint.
[2017-04-19] MEDS ORDERED: Pantoprazole 40 MG Tab.CR PO SCH (09:00)
--- NOTE | 2017-04-19 11:31 | PCM.DCSUM1 ---
<Romain Saldana - Last Filed: 04/19/17 11:25> Discharge Summary - Hospital Course Free Text/Narrative:: admission date April 16, 2017 Discharge date April 19, 2017 Admission diagnosis: #1. GI bleed #2. Symptomatic anemia #3. Syncopal episode Discharge diagnosis: #1. Duodenal ulcer with biopsy pending #2. Symptomatic anemia-resolved consults: Dr. Styles, surgery procedures: EGD with biopsy Hospital course: a 61-year-old male that was admitted to the hospital on 16 April after having a syncopal episode at an outpatient facility. Patient was found to be anemic with hemoglobin of 9.4. Given the symptomatic event, patient was transfused 2 units of packed red blood cells. His hemoglobin and hematocrit were followed closely.. He was placed on a Protonix drip. Surgery was consulted for EGD, which as per their interpretation, there is likely a duodenal ulcer that was found which was however biopsied for potential H. pylori infection versus malignancy. It was advised by surgery to put the patient on 40 mg of Protonix daily. He was also prescribed Carafate 1 g by mouth 4 times a day 2 weeks. Given the reassuring H/H,the patient was ultimately discharged home with a follow-up with surgery. Discharge instructions: Patient was advised that if he experiences any further lightheadedness, syncopal episode, bloody stool, abdominal pain that he should seek further medical attention. He is to follow-up with surgery in clinic as an outpatient on Sunday. he is to also follow-up with his primary care provider, Dr. ZAMORA. - Discharge Data Discharge Date: 04/19/17 Discharge Disposition: Home, Self-Care 01 Condition: Fair - Patient Summary/Data Operative Procedure(s) Performed: EGD with biopsy - Patient Instructions Diet: Regular Diet as Tolerated Activity: As Tolerated Driving: May Drive Today Showering/Bathing: May Shower Notify Provider of: Fever, Increased Pain, Nausea and/or Vomiting Other/Special Instructions: bloody stool - Discharge Plan Prescriptions/Med Rec: Pantoprazole [ProTONIX] 40 mg PO DAILY 30 Days #30 tab.cr Pantoprazole Sodium [Protonix] 40 mg PO DAILY 30 Days #30 tablet. Sucralfate [Carafate] 1 gm PO QID 14 Days #56 tablet Home Medications: Home Meds Multivitamin [Daily Multiple Vitamin] 1 tab PO DAILY 12/01/15 [History] Calcium Polycarbophil [Fiber Tabs] 1 tab PO DAILY 04/13/17 [History] Fish Oil/[place]-3 Fatty Acids [Fish Oil 1,000 MG] 1 each PO DAILY 04/13/17 [ History] Pantoprazole Sodium [Protonix] 40 mg PO DAILY 30 Days #30 tablet. 04/18/17 [Rx ] Pantoprazole [ProTONIX] 40 mg PO DAILY 30 Days #30 tab.petr 04/19/17 [Rx] Sucralfate [Carafate] 1 gm PO QID 14 Days #56 tablet 04/19/17 [Rx] Patient Handouts: Colonoscopy, Keoy-hi-Unow, Near-Syncope, [id number], Sucralfate tablets, Pantoprazole tablets, Blood Transfusion, Care After, Easy-to -Read Referrals: Svetlana Styles MD [Physician] - 04/27/17 10:30 am Lopez Gonzalez MD [Ordering Only Provider] - 04/25/17 10:00 am - Discharge Summary/Plan Comment Discharge Summary/Plan Comment: admission date April 16, 2017 Discharge date April 19, 2017 Admission diagnosis: #1. GI bleed #2. Symptomatic anemia #3. Syncopal episode Discharge diagnosis: #1. Duodenal ulcer with biopsy pending #2. Symptomatic anemia-resolved consults: Dr. Styles, surgery procedures: EGD with biopsy Hospital course: a 61-year-old male that was admitted to the hospital on 16 April after having a syncopal episode at an outpatient facility. Patient was found to be anemic with hemoglobin of 9.4. Given the symptomatic event, patient was transfused 2 units of packed red blood cells. His hemoglobin and hematocrit were followed closely.. He was placed on a Protonix drip. Surgery was consulted for EGD, which as per their interpretation, there is likely a duodenal ulcer that was found which was however biopsied for potential H. pylori infection versus malignancy. It was advised by surgery to put the patient on 40 mg of Protonix daily. He was also prescribed Carafate 1 g by mouth 4 times a day 2 weeks. Given the reassuring H/H,the patient was ultimately discharged home with a follow-up with surgery. Discharge instructions: Patient was advised that if he experiences any further lightheadedness, syncopal episode, bloody stool, abdominal pain that he should seek further medical attention. He is to follow-up with surgery in clinic as an outpatient on Sunday. he is to also follow-up with his primary care provider, Dr. ZAMORA. - Patient Data Vitals - Most Recent: Last Vital Signs Temp 36.4 C 04/19/17 08:00 Pulse 83 04/19/17 08:00 Resp 18 04/19/17 08:00 BP 117/60 04/19/17 08:00 Pulse Ox 93 L 04/19/17 08:00 Weight - Most Recent: 107.91 kg I&O - Last 24 hours: Intake & Output 04/18/17 04/19/17 04/19/17 22:59 06:59 14:59 Intake Total 1151 300 Output Total 530 400 Balance 621 -100 Lab Results - Last 24 hrs: Laboratory Results - last 24 hr 04/19/17 Range/Units 05:10 Hgb 10.8 L (13.0-17.0) g/dL Hct 32.7 L (38.0-50.0) % Med Orders - Current: Current Medications Ondansetron HCl (Zofran) 4 mg IVPUSH Q4H PRN PRN Reason: Nausea Pantoprazole Sodium (Protonix) 40 mg PO DAILY [facility] Last Admin: 04/19/17 08:08 Dose: 40 mg Discontinued Medications Sodium Chloride (Normal Saline) 1,000 mls @ 500 mls/hr IV STAT ONE Stop: 04/16/17 16:33 Last Admin: 04/16/17 15:02 Dose: 500 mls/hr Pantoprazole Sodium 80 mg/ (Sodium Chloride) 50 mls @ 5 mls/hr IV Q10H DIANE Stop: 04/19/17 16:16 Last Admin: 04/18/17 08:32 Dose: 5 mls/hr Sodium Chloride (Normal Saline) 1,000 mls @ 125 mls/hr IV ASDIRECTED [facility] Last Admin: 04/18/17 01:44 Dose: 125 mls/hr Iopamidol (Isovue Multipack-370 (76%)) 100 ml IVPUSH ONETIME STA Stop: 04/16/17 13:32 Last Admin: 04/16/17 13:31 Dose: 100 ml Midazolam HCl (Versed 1 Mg/Ml) Confirm Administered Dose 2 mg .ROUTE .STK-MED ONE Stop: 04/18/17 13:35 Pantoprazole Sodium (Protonix Iv) 80 mg IVPUSH .BOLUS ONE Stop: 04/16/17 15:28 Last Admin: 04/16/17 15:45 Dose: 80 mg Propofol (Diprivan 20 Ml) Confirm Administered Dose 200 mg .ROUTE .STK-MED ONE Stop: 04/18/17 13:35 Propofol (Diprivan 20 Ml) Confirm Administered Dose 200 mg .ROUTE .STK-MED ONE Stop: 04/18/17 14:03 *Q Meaningful Use (DIS) - VTE *Q VTE Criteria *Q: - Stroke *Q Stroke Criteria *Q: - AMI *Q AMI Criteria *Q: <Juaquin Singh - Last Filed: 04/19/17 14:11> - Patient Data Vitals - Most Recent: Last Vital Signs Temp 98.3 F 04/19/17 11:48 Pulse 72 04/19/17 11:48 Resp 18 04/19/17 11:48 BP 116/82 04/19/17 11:48 Pulse Ox 93 L 04/19/17 11:48 I&O - Last 24 hours: Intake & Output 04/18/17 04/19/17 04/19/17 22:59 06:59 14:59 Intake Total 1151 300 350 Output Total 530 400 Balance 621 -100 350 Lab Results - Last 24 hrs: Laboratory Results - last 24 hr 04/19/17 Range/Units 05:10 Hgb 10.8 L (13.0-17.0) g/dL Hct 32.7 L (38.0-50.0) % Med Orders - Current: Current Medications Discontinued Medications Sodium Chloride (Normal Saline) 1,000 mls @ 500 mls/hr IV STAT ONE Stop: 04/16/17 16:33 Last Admin: 04/16/17 15:02 Dose: 500 mls/hr Pantoprazole Sodium 80 mg/ (Sodium Chloride) 50 mls @ 5 mls/hr IV Q10H DIANE Stop: 04/19/17 16:16 Last Admin: 04/18/17 08:32 Dose: 5 mls/hr Sodium Chloride (Normal Saline) 1,000 mls @ 125 mls/hr IV ASDIRECTED [facility] Last Admin: 04/18/17 01:44 Dose: 125 mls/hr Iopamidol (Isovue Multipack-370 (76%)) 100 ml IVPUSH ONETIME STA Stop: 04/16/17 13:32 Last Admin: 04/16/17 13:31 Dose: 100 ml Midazolam HCl (Versed 1 Mg/Ml) Confirm Administered Dose 2 mg .ROUTE .STK-MED ONE Stop: 04/18/17 13:35 Ondansetron HCl (Zofran) 4 mg IVPUSH Q4H PRN PRN Reason: Nausea Pantoprazole Sodium (Protonix Iv) 80 mg IVPUSH .BOLUS ONE Stop: 04/16/17 15:28 Last Admin: 04/16/17 15:45 Dose: 80 mg Pantoprazole Sodium (Protonix) 40 mg PO DAILY [facility] Last Admin: 04/19/17 08:08 Dose: 40 mg Propofol (Diprivan 20 Ml) Confirm Administered Dose 200 mg .ROUTE .STK-MED ONE Stop: 04/18/17 13:35 Propofol (Diprivan 20 Ml) Confirm Administered Dose 200 mg .ROUTE .STK-MED ONE Stop: 04/18/17 14:03 *Q Meaningful Use (DIS) - VTE *Q VTE Criteria *Q: - Stroke *Q Stroke Criteria *Q: - AMI *Q AMI Criteria *Q: - Free Text/Narrative Note: I performed a history and physical examination of the patient and discussed patient's management with the resident. I reviewed the resident's note and agree with the documentation findings and plan of care below.
[2017-04-19 11:49] VITALS: BP 116/82
== END 2017-04-19 12:16 | disposition home or self-care (01) | DRG 253 ==
LOC: MW.ED 12:00 → MW.MS 14:58
PROVIDERS: ADMIT Internal Medicine; ATTEND Internal Medicine
PROC: 30233N1 Transfusion of Nonautologous Red Blood Cells into Peripheral Vein, Percutaneous Approach (ICD-10-PCS; principal; 2017-04-16)
DX: K92.2 Gastrointestinal hemorrhage, unspecified (principal); K26.4 Chronic or unspecified duodenal ulcer with hemorrhage; K29.71 Gastritis, unspecified, with bleeding; D64.9 Anemia, unspecified; Z79.899 Other long term (current) drug therapy
CPT/HCPCS: 36415; 36430; 70450; 70450-26; 71045; 71045-26; 74177; 74177-26; 80048; 80053; 81001; 84484; 85014; 85018; 85025; 85610; 86850; 86900; 86901; 86920; 86921; 86922; 88305; 88312; 93005; 96374; 99284; 99285-25; A9270-GY; C9113; J2250; J2704; J7040; P9016; Q9967

== ENCOUNTER 2017-04-25 12:33 | Day surgery (SDC) | payer BC ==
[~2017-04-25 12:33] MED LIST: Lactated Ringers 1,000 ML IV SCH; Lidocaine 2% 5 ML SDV ONE; Propofol 200 MG/20 ML SDV ONE; fentaNYL 100 MCG/2 ML SDV ONE
[2017-04-25] MEDS ORDERED: Glycopyrrolate 0.2 MG/ML SDV ONE (12:37)
[2017-04-25] MEDS ORDERED: Neostigmine Methylsulfate 1 MG/ML 5 ML Syringe ONE (12:37)
--- NOTE | 2017-04-25 13:43 | PCM.PREANE ---
Preanesthetic Assessment - Anesthesia/Transfusion/Family Hx Anesthesia History: Prior Anesthesia Without Reaction Other Type of Anesthesia Reaction Comment: states "brother has hard time coming out of anesthesia" Family History of Anesthesia Reaction: No Transfusion History: Prior Transfusion Without Reaction - Review of Systems General: No Symptoms Pulmonary: No Symptoms Cardiovascular: No Symptoms Gastrointestinal: No Symptoms Neurological: No Symptoms Other: Reports: None - Physical Assessment NPO Status Date: 04/24/17 NPO Status Time: 23:00 O2 Sat by Pulse Oximetry: 99 Respiratory Rate: 16 Vital Signs: Last Vital Signs Temp 37.0 C 04/25/17 13:02 Pulse 69 04/25/17 13:02 Resp 16 04/25/17 13:02 BP 149/81 H 04/25/17 13:02 Pulse Ox 99 04/25/17 13:02 Height: 1.78 m Weight: 107.048 kg ASA Class: 2 Mental Status: Alert & Oriented x3 Airway Class: Mallampati = 2 Dentition: Reports: Broken Tooth/Teeth ROM/Head Extension: Full Lungs: Clear to Auscultation, Normal Respiratory Effort Cardiovascular: Regular Rate, Regular Rhythm - Allergies Allergies/Adverse Reactions: Allergies Allergy/AdvReac Type Severity Reaction Status Date / Time No Known Allergies Allergy Verified 04/24/17 07:59 - Anesthesia Plan Pre-Op Medication Ordered: None - Acknowledgements Anesthesia Type Planned: MAC Pt an Appropriate Candidate for the Planned Anesthesia: Yes Alternatives and Risks of Anesthesia Discussed w Pt/Guardian: Yes Pt/Guardian Understands and Agrees with Anesthesia Plan: Yes PreAnesthesia Questionnaire Other HEENT History: wears glasses Cardiovascular History: Reports: None Respiratory History: Reports: None Gastrointestinal History: Reports: GI Bleed Genitourinary History: Reports: Renal Calculus Musculoskeletal History: Reports: Arthritis, Back Pain, Chronic, Neck Pain, Chronic Neurological History: Reports: Other (See Below) Other Neuro History: recent syncopal episode 04/16 Psychiatric History: Reports: None Endocrine/Metabolic History: Reports: Obesity/BMI 30+ Hematologic History: Reports: Blood Transfusion(s) Other Hematologic History: 2 units on 04/16 Immunologic History: Reports: None Oncologic (Cancer) History: Reports: None Dermatologic History: Reports: None - Infectious Disease History Infectious Disease History: Reports: Chicken Pox, Measles - Past Surgical History Head Surgeries/Procedures: Reports: None HEENT Surgical History: Reports: Adenoidectomy, Oral Surgery, Tonsillectomy Cardiovascular Surgical History: Reports: None Respiratory Surgical History: Reports: None GI Surgical History: Reports: Colonoscopy, EGD Male Surgical History: Reports: Kidney Stone Extraction, Lithotripsy (ESWL) Other Male Surgeries/Procedures: surgery x4 Endocrine Surgical History: Reports: None Neurological Surgical History: Reports: None Musculoskeletal Surgical History: Reports: None Oncologic Surgical History: Reports: None Dermatological Surgical History: Reports: None - History Comment History Comment: etoh "2x a day" per ER note, but the patient states that he has not had ETOH in one year. - SUBSTANCE USE Smoking Status *Q: Never Smoker Second Hand Smoke Exposure: No Days Per Week of Alcohol Use: 1 Number of Drinks Per Day: 2 Total Drinks Per Week: 2 Recreational Drug Use History: No - HOME MEDS Home Medications: Home Meds Multivitamin [Daily Multiple Vitamin] 1 tab PO DAILY 12/01/15 [History] Calcium Polycarbophil [Fiber Tabs] 1 tab PO DAILY 04/13/17 [History] Fish Oil/[place]-3 Fatty Acids [Fish Oil 1,000 MG] 1 each PO DAILY 04/13/17 [ History] Pantoprazole [ProTONIX] 40 mg PO DAILY 30 Days #30 tab.cr 04/19/17 [Rx] Sucralfate [Carafate] 1 gm PO QID 14 Days #56 tablet 04/19/17 [Rx] - CURRENT (IN HOUSE) MEDS Current Meds: Current Medications Lactated Ringer's (Ringers, Lactated) 1,000 mls @ 125 mls/hr IV ASDIRECTED [facility] Last Admin: 04/25/17 13:04 Dose: 125 mls/hr Discontinued Medications Fentanyl (Sublimaze) Confirm Administered Dose 100 mcg .ROUTE .STK-MED ONE Stop: 04/25/17 11:06 Fentanyl (Sublimaze) Confirm Administered Dose 100 mcg .ROUTE .STK-MED ONE Stop: 04/25/17 11:28 Glycopyrrolate (Robinul) Confirm Administered Dose 0.4 mg .ROUTE .STK-MED ONE Stop: 04/25/17 12:38 Lidocaine (Xylocaine-Mpf 2%) Confirm Administered Dose 5 ml .ROUTE .STK-MED ONE Stop: 04/25/17 11:06 Neostigmine Methylsulfate (Neostigmine) Confirm Administered Dose 5 mg .ROUTE .STK-MED ONE Stop: 04/25/17 12:38 Propofol (Diprivan 20 Ml) Confirm Administered Dose 400 mg .ROUTE .STK-MED ONE Stop: 04/25/17 11:06
--- NOTE | 2017-04-25 16:05 | PCM.POSTAN ---
POST ANESTHESIA ASSESSMENT - MENTAL STATUS Mental Status: Alert, Oriented - RESPIRATORY Respiratory Status: Respiratory Rate WNL, Airway Patent, O2 Saturation Stable - CARDIOVASCULAR CV Status: Pulse Rate WNL, Blood Pressure Stable - GASTROINTESTINAL GI Status: No Symptoms - POST OP HYDRATION Hydration Status: Adequate & Stable
[2017-04-25 16:24] VITALS: BP 129/51
--- NOTE | 2017-04-25 16:34 | PCM.OPNOTE ---
- General Post-Op/Procedure Note Date of Surgery/Procedure: 04/25/17 Operative Procedure(s): Diagnostic colonoscopy Findings: Diverticulosis throughout the distal half of the colon. Pre Op Diagnosis: Gi bleed Post-Op Diagnosis: Diverticulosis Anesthesia Technique: PIERRE Primary Surgeon: Svetlana Styles Condition: Good Free Text/Narrative:: Intake & Output 04/25/17 04/25/17 04/25/17 06:59 14:59 22:59 Intake Total 1000 Balance 1000
--- NOTE | 2017-04-25 21:59 | OR ---
SURGEON: SETH MATTHEW MD DATE OF PROCEDURE: 04/25/2017 PREOPERATIVE DIAGNOSIS: Gastrointestinal bleed. POSTOPERATIVE DIAGNOSIS: Diverticulosis. PROCEDURE PERFORMED: Diagnostic colonoscopy. ANESTHESIA: MAC. INSTRUMENT USED: Olympus colonoscope. EXTENT OF EXAM: To the cecum. PREPARATION: Good. LIMITATIONS: None. INDICATIONS FOR EXAMINATION: The patient is a 61-year-old male who was hospitalized last week with a GI bleed. Upper endoscopy revealed an area of thickening of the duodenum concerning for duodenal ulcer. He was placed on pantoprazole and sucralfate. He has been doing well since then. Given the fact that he had melena and his last colonoscopy was several years ago, the decision was made to perform a diagnostic colonoscopy now that he is stabilized. The patient and I discussed the procedure, expected perioperative course, and risks including bleeding, infection, or damage to surrounding structures including perforation. The patient verbalized understanding and wishes to proceed. PROCEDURE IN DETAIL: The patient was brought into the endoscopy suite and placed in a left lateral decubitus position. A time-out was completed verifying the patient's name, age, date of , allergies, and procedure to be performed. Monitored anesthesia care was induced and continuous oxygen was provided via nasal cannula throughout the procedure. After adequate sedation was achieved, a digital rectal exam was performed. This exam was within normal limits. A well lubricated colonoscope was inserted in the rectum and advanced under direct visualization to the level of the cecum. The cecum was identified by both visual and anatomic landmarks. A photograph was taken of the cecal cap, however, given looping more proximally, I was unable to retroflex the scope within the cecum. The scope was then fully withdrawn while examining the color, texture, anatomy, and integrity of the mucosa from the cecum to the anal canal. The patient was noted to have diverticulosis throughout the distal aspect of the colon, but no evidence of polyps, ulcers, or inflammation. The scope was brought into the rectum and retroflexed to allow visualization of the anal canal opening. This appeared normal a photograph was taken. The scope was then straightened out and removed from the patient. The cecum to anus time was 6 minutes. The patient tolerated the procedure well and was taken to PACU in stable condition. ENDOSCOPIC DIAGNOSIS: Diverticulosis. RECOMMENDATIONS: Follow up in clinic in 2 weeks. SIM CHAPA /[id number]
== END 2017-04-25 16:35 | disposition home or self-care (01) ==
LOC: MW.SDS 12:33
PROVIDERS: ATTEND Surgery
DX: K57.30 Diverticulosis of large intestine without perforation or abscess without bleeding (principal); E66.9 Obesity, unspecified; M19.90 Unspecified osteoarthritis, unspecified site; Z90.89 Acquired absence of other organs; Z79.899 Other long term (current) drug therapy; Z68.33 Body mass index [BMI] 33.0-33.9, adult; Z87.442 Personal history of urinary calculi; Z98.890 Other specified postprocedural states
CPT/HCPCS: 45378; J3010; J7120; J2704

== ENCOUNTER 2017-07-17 12:28 | Day surgery (SDC) | payer BC ==
[~2017-07-17 12:28] MED LIST changes: -Lidocaine 2% 5 ML SDV ONE; -Propofol 200 MG/20 ML SDV ONE; +Sodium Chloride 0.9% 10 ML Syringe FLUSH PRN; +Sodium Chloride 0.9% 2.5 ML Syringe FLUSH PRN; -fentaNYL 100 MCG/2 ML SDV ONE
--- NOTE | 2017-07-17 13:23 | PCM.PREANE ---
Preanesthetic Assessment - Anesthesia/Transfusion/Family Hx Anesthesia History: Prior Anesthesia Without Reaction Other Type of Anesthesia Reaction Comment: states "brother has hard time coming out of anesthesia" Family History of Anesthesia Reaction: No Transfusion History: Prior Transfusion Without Reaction Intubation History: Unknown - Review of Systems General: No Symptoms Pulmonary: No Symptoms Cardiovascular: No Symptoms Gastrointestinal: No Symptoms, Other (recent bleed from duodenal ulcer ( endoscopy not completed) - april) Neurological: No Symptoms Other: Reports: None - Physical Assessment O2 Sat by Pulse Oximetry: 98 Respiratory Rate: 16 Vital Signs: Last Vital Signs Temp 36.4 C 07/17/17 12:34 Pulse 66 07/17/17 12:34 Resp 16 07/17/17 12:34 BP Pulse Ox 98 07/17/17 12:34 Height: 1.78 m Weight: 108.409 kg ASA Class: 2 Mental Status: Alert & Oriented x3 Airway Class: Mallampati = 2 Dentition: Reports: Normal Dentition, Broken Tooth/Teeth (big chips on front upper incisors) Thyro-Mental Finger Breadths: 2 Mouth Opening Finger Breadths: 2 ROM/Head Extension: Full Lungs: Clear to Auscultation, Normal Respiratory Effort Cardiovascular: Regular Rate, Regular Rhythm - Allergies Allergies/Adverse Reactions: Allergies Allergy/AdvReac Type Severity Reaction Status Date / Time No Known Allergies Allergy Verified 07/12/17 12:46 - Blood Blood Available: No - Anesthesia Plan Pre-Op Medication Ordered: None - Acknowledgements Anesthesia Type Planned: MAC Pt an Appropriate Candidate for the Planned Anesthesia: Yes Alternatives and Risks of Anesthesia Discussed w Pt/Guardian: Yes Pt/Guardian Understands and Agrees with Anesthesia Plan: Yes PreAnesthesia Questionnaire HEENT History: Reports: Other (See Below) Other HEENT History: wears glasses Cardiovascular History: Reports: None Respiratory History: Reports: None Gastrointestinal History: Reports: GI Bleed, Other (See Below) Other Gastrointestinal History: duodenal ulcer Genitourinary History: Reports: Renal Calculus (multiple ( four surgeries)) Musculoskeletal History: Reports: Arthritis, Back Pain, Chronic, Neck Pain, Chronic Neurological History: Reports: Other (See Below) Other Neuro History: recent syncopal episode 04/16 Psychiatric History: Reports: None Endocrine/Metabolic History: Reports: Obesity/BMI 30+ Hematologic History: Reports: Blood Transfusion(s) Other Hematologic History: 2 units on 04/16 Immunologic History: Reports: None Oncologic (Cancer) History: Reports: None Dermatologic History: Reports: None - Infectious Disease History Infectious Disease History: Reports: Chicken Pox, Measles - Past Surgical History Head Surgeries/Procedures: Reports: None HEENT Surgical History: Reports: Adenoidectomy, Oral Surgery, Tonsillectomy Cardiovascular Surgical History: Reports: None Respiratory Surgical History: Reports: None GI Surgical History: Reports: Colonoscopy, EGD Male Surgical History: Reports: Kidney Stone Extraction, Lithotripsy (ESWL) Other Male Surgeries/Procedures: surgery x4 Endocrine Surgical History: Reports: None Neurological Surgical History: Reports: None Musculoskeletal Surgical History: Reports: None Oncologic Surgical History: Reports: None Dermatological Surgical History: Reports: None - History Comment History Comment: etoh "2x a day" per ER note, but the patient states that he has not had ETOH in one year. - SUBSTANCE USE Smoking Status *Q: Never Smoker Second Hand Smoke Exposure: No Days Per Week of Alcohol Use: 1 Number of Drinks Per Day: 2 Total Drinks Per Week: 2 Recreational Drug Use History: No - HOME MEDS Home Medications: Home Meds Multivitamin [Daily Multiple Vitamin] 1 tab PO DAILY 12/01/15 [History] Calcium Polycarbophil [Fiber Tabs] 1 tab PO DAILY 04/13/17 [History] Fish Oil/[place]-3 Fatty Acids [Fish Oil 1,000 MG] 1 each PO DAILY 04/13/17 [ History] Pantoprazole [ProTONIX] 40 mg PO DAILY 30 Days #30 tab.cr 04/19/17 [Rx] Sucralfate [Carafate] 1 gm PO QID 14 Days #56 tablet 04/19/17 [Rx] - CURRENT (IN HOUSE) MEDS Current Meds: Current Medications Lactated Ringer's (Ringers, Lactated) 1,000 mls @ 125 mls/hr IV ASDIRECTED DIANE Last Admin: 07/17/17 12:39 Dose: 125 mls/hr Sodium Chloride (Saline Flush) 10 ml FLUSH ASDIRECTED PRN PRN Reason: Keep Vein Open Sodium Chloride (Saline Flush) 2.5 ml FLUSH ASDIRECTED PRN PRN Reason: Keep Vein Open
[2017-07-17] MEDS ORDERED: Propofol 200 MG/20 ML SDV ONE (14:19)
[2017-07-17] MEDS ORDERED: Lidocaine 2% 5 ML SDV ONE (14:44)
--- NOTE | 2017-07-17 15:20 | PCM.POSTAN ---
POST ANESTHESIA ASSESSMENT - RESPIRATORY Respiratory Status: Respiratory Rate WNL, Airway Patent, O2 Saturation Stable - CARDIOVASCULAR CV Status: Pulse Rate WNL, Blood Pressure Stable - GASTROINTESTINAL GI Status: No Symptoms - POST OP HYDRATION Hydration Status: Adequate & Stable
--- NOTE | 2017-07-17 15:20 | PCM48HPAN ---
Post Anesthesia Note - EVALUATION WITHIN 48HRS OF ANESTHETIC Vital Signs in Normal Range: Yes Patient Participated in Evaluation: Yes Respiratory Function Stable: Yes Airway Patent: Yes Cardiovascular Function Stable: Yes Hydration Status Stable: Yes Pain Control Satisfactory: Yes Nausea and Vomiting Control Satisfactory: Yes Mental Status Recovered: Yes Resp Rate: 16
--- NOTE | 2017-07-17 15:27 | PCM.OPNOTE ---
- General Post-Op/Procedure Note Date of Surgery/Procedure: 07/17/17 Operative Procedure(s): EGD Findings: Duodenal ulcer has completely resolved. First portion of the duodenum appeared normal Pre Op Diagnosis: Duodenal ulcer Post-Op Diagnosis: Duodenal ulcer resolved Anesthesia Technique: PIERRE Primary Surgeon: Svetlana Styles Condition: Good
[2017-07-17 16:05] VITALS: BP 142/81
--- NOTE | 2017-07-17 18:13 | OR ---
SURGEON: SETH MATTHEW MD DATE OF PROCEDURE: 07/17/2017 PREOPERATIVE DIAGNOSIS: Duodenal ulcer. POSTOPERATIVE DIAGNOSIS: Normal EGD. PROCEDURE PERFORMED: Diagnostic EGD. ANESTHESIA: MAC. INSTRUMENT USED: Olympus endoscope. EXTENT OF EXAM: To the second portion of duodenum. PREPARATION: Good. LIMITATIONS: None. INDICATION FOR EXAMINATION: The patient is a 61-year-old male, who three months ago, developed an acute GI bleed secondary to duodenal ulcer. During his last diagnostic scope, I was unable to pass the scope, pass the first portion of duodenum due to a large ulcer. The patient now has been on pantoprazole and sucralfate for two months and is symptom-free. The decision was made to perform a repeat endoscopy to ensure that the ulcer has adequately healed. We discussed the procedure, expected perioperative course, and risks including bleeding or perforation. The patient verbalized understanding and wishes to proceed. PROCEDURE IN DETAIL: The patient was brought to the endoscopy suite and placed in a beach chair position. A time-out was completed verifying the patient's name, age, date of , allergies, and procedure to be performed. A bite block was placed in the patient's mouth and monitored anesthesia care induced. Continuous oxygen was provided via nasal cannula throughout the procedure. After adequate sedation was achieved, a well lubricated endoscope was placed in the patient's mouth and advanced under direct visualization to the second portion of duodenum. This appeared normal and a photograph was taken. The scope was then fully withdrawn while examining the color, texture, anatomy, and integrity of the mucosa of the upper GI tract. The mucosa of the duodenum appeared completely normal with no evidence of any inflammation or ulceration. The scope was brought into the stomach, and a photograph was taken of the pylorus as well as the GE junction. Both appeared normal. The gastric mucosa was free of pathology. The scope was then brought into the distal esophagus, and a photograph taken of the GE junction. The remainder of the esophageal mucosa appeared normal with no evidence of esophagitis. The scope was then removed from the patient. The procedure terminated. The patient tolerated procedure well and was taken to PACU in stable condition. ENDOSCOPIC DIAGNOSIS: Normal EGD with well-healed duodenal ulcer. RECOMMENDATIONS: Recommended the patient to stop pantoprazole and sucralfate and instead switch to 20 mg of omeprazole daily for maintenance therapy. SIM / SAMMI /[id number]
== END 2017-07-17 16:00 | disposition home or self-care (01) ==
LOC: MW.SDS 12:28
PROVIDERS: ATTEND Surgery
DX: K26.9 Duodenal ulcer, unspecified as acute or chronic, without hemorrhage or perforation (principal); Z88.8 Allergy status to other drugs, medicaments and biological substances; Z79.899 Other long term (current) drug therapy
CPT/HCPCS: 43235; J7120; J2704

== ENCOUNTER 2018-11-09 20:10 | Emergency (ER) | payer MEDICARE, OTHER ==
[2018-11-09] MEDS ORDERED: Albuterol/Ipratropium 3.0-0.5 MG/3 ML Neb Soln NEB ONE (20:32)
[2018-11-09] MEDS ORDERED: Sodium Chloride 0.9% 2.5 ML Syringe FLUSH PRN (20:32)
[2018-11-09] MEDS ORDERED: Sodium Chloride 0.9% 10 ML Syringe FLUSH PRN (20:32)
--- NOTE | 2018-11-09 20:37 | EDM.PDOC ---
ED HPI GENERAL MEDICAL PROBLEM - General Chief Complaint: General Stated Complaint: PT HAS INSOMNIA Time Seen by Provider: 11/09/18 20:25 - History of Present Illness INITIAL COMMENTS - FREE TEXT/NARRATIVE: HISTORY AND PHYSICAL: History of present illness: The patient is a 62-year-old male who presents to triage with complaints of insomnia for the last 4 nights. He says that starting Sunday night he has had trouble getting to sleep and then once he does go to sleep he is having trouble staying asleep. He says that he has slept for a total of a couple of hours in the last 4 days. He says he does drink one soda a day but is not drinking excessive caffeine and he has no complaints of headache chest pain abdominal pain nausea vomiting diarrhea or urinary complaints. He has no leg pain or swelling. He says he only sleeps on one pillow and doesn't feel short of breath when he is laying flat but he does say that occasionally he feels short of breath and is not necessarily associated with trying to go to sleep. The patient was seen here on October 06 for shortness of breath and received Solu- Medrol and duo nebs and was worked up but declined any prescriptions for home and he says he did not follow-up in the clinic. He also has an admission on March [id number] or chest pain and shortness of breath for which she was worked up with serial EKGs and troponins and was felt to have an acute bronchitis/community-acquired pneumonia and was treated for that. On his last visit on October 06 is O2 sat at discharge was 93% which is the same O2 sat he presents to the ED with this evening. He says that he does feel short of breath sometimes when he is trying to sleep but it is not a continuous problem. He says he has tried something [id number] for sleep but he has not tried melatonin or Benadryl and he cannot recall the name of the medication that he tried. The patient says that he does not have a regular clinic provider. He is eating and drinking normally and currently in the ED he says he feels hot but he has not had a fever over the last 4 days or chills and currently does not feel short of breath in the ED. The patient says he is not sure if he snores at night and he has never been evaluated for any pulmonary disorders nor for sleep apnea. The patient tells me that he only sleeps on one pillow at night and does not feel short of breath when he lays flat in bed nor does he have to sit upright to try to go to sleep. Review of systems: As per history of present illness and below otherwise all systems reviewed and negative. Past medical history: As per history of present illness and as reviewed below otherwise noncontributory. Surgical history: As per history of present illness and as reviewed below otherwise noncontributory. Social history: No reported history of drug or alcohol abuse. Family history: As per history of present illness and as reviewed below otherwise noncontributory. Physical exam: General: Well-developed well-nourished overweight man who is nontoxic and vital signs are noted by me. He speaks clearly and easily in the ED without breathlessness and moves easily without any distress or breathlessness HEENT: Atraumatic, normocephalic, negative for conjunctival pallor or scleral icterus, mucous membranes moist, throat clear, neck supple, nontender, trachea midline. Lungs: Clear to auscultation, breath sounds equal bilaterally, chest nontender. There is no wheezing or stridor but there is some diminished breath sounds in the bases bilaterally but no work of breathing. Heart: S1S2, regular rate and rhythm no overt murmurs Abdomen: Soft, nondistended, nontender. Negative for masses or hepatosplenomegaly. Negative for costovertebral tenderness. Pelvis: Stable nontender. Genitourinary: Deferred. Rectal: Deferred. Extremities: Atraumatic, negative for cords or calf pain. Neurovascular unremarkable. No pedal edema no leg asymmetry Neuro: Awake, alert, oriented. Cranial nerves II through XII unremarkable. Cerebellum unremarkable. Motor and sensory unremarkable throughout. Exam nonfocal. Diagnostics: EKG CBC CMP TSH UA with reflex chest x-ray BNP ABG Therapeutics: DuoNeb IV placement Ativan by mouth I discussed with the patient all testing results and my concerns about his O2 sat at 90-93% and this insomnia. His ABG looks good although there is some mild hypoxia and I think that his pulmonary status needs to be evaluated and he needs more outpatient workup. Since March he has not gotten into the clinic and I have stressed the need to do so and will place his name on the expedited follow-up. I have recommended [id number]-ocr-[id number] medications for sleep such as melatonin and/or Benadryl and will give him one dose of Ativan here in the ED as long as he gets a ride home Impression: Persistent insomnia etiology unclear, mild low oxygen saturation asymptomatic Definitive disposition and diagnosis as appropriate pending reevaluation and review of above. - Related Data Allergies Allergy/AdvReac Type Severity Reaction Status Date / Time No Known Allergies Allergy Verified 11/09/18 20:26 Home Meds: Home Meds Multivitamin [Daily Multiple Vitamin] 1 tab PO DAILY 12/01/15 [History] Fish Oil/[place]-3 Fatty Acids [Fish Oil 1,000 MG] 1 each PO DAILY 04/13/17 [ History] Past Medical History HEENT History: Reports: Impaired Vision, Other (See Below) Other HEENT History: wears glasses Cardiovascular History: Reports: None Respiratory History: Reports: None Gastrointestinal History: Reports: GI Bleed, Other (See Below) Other Gastrointestinal History: duodenal ulcer Genitourinary History: Reports: Renal Calculus Musculoskeletal History: Reports: Arthritis, Back Pain, Chronic, Neck Pain, Chronic Neurological History: Reports: Other (See Below) Other Neuro History: recent syncopal episode 04/16/2017 Psychiatric History: Reports: None Endocrine/Metabolic History: Reports: Obesity/BMI 30+ Hematologic History: Reports: Blood Transfusion(s) Other Hematologic History: 2 units on 04/16/2017 Immunologic History: Reports: None Oncologic (Cancer) History: Reports: None Dermatologic History: Reports: None - Infectious Disease History Infectious Disease History: Reports: Chicken Pox, Measles - Past Surgical History Head Surgeries/Procedures: Reports: None HEENT Surgical History: Reports: Adenoidectomy, Oral Surgery, Tonsillectomy Cardiovascular Surgical History: Reports: None Respiratory Surgical History: Reports: None GI Surgical History: Reports: Colonoscopy, EGD Male Surgical History: Reports: Kidney Stone Extraction, Lithotripsy ([facility]) Other Male Surgeries/Procedures: surgery x4 Endocrine Surgical History: Reports: None Neurological Surgical History: Reports: None Musculoskeletal Surgical History: Reports: None Oncologic Surgical History: Reports: None Dermatological Surgical History: Reports: None - History Comment History Comment: etoh "2x a day" per ER note, but the patient states that he has not had ETOH in one year. Social & Family History - Family History Family Medical History: Noncontributory Cardiac: Reports: Bypass, Other (See Below) Other Cardiac Family History: Father had a "valve explode in 1971" and sister had CABG. - Caffeine Use Caffeine Use: Reports: Soda ED ROS GENERAL - Review of Systems Review Of Systems: ROS reveals no pertinent complaints other than HPI. ED EXAM, GENERAL - Physical Exam Exam: See Below (See dictation) Course - Vital Signs Last Recorded V/S: Last Vital Signs Temp 36.4 C 11/09/18 22:08 Pulse 70 11/09/18 22:08 Resp 13 11/09/18 22:08 BP 127/87 11/09/18 22:08 Pulse Ox 93 L 11/09/18 22:08 - Orders/Labs/Meds Orders: Active Orders 24 hr Category Date Time Status Cardiac Monitoring [RC] . DIRECTED Care 11/09/18 20:31 Active EKG Documentation Completion [RC] STAT Care 11/09/18 20:31 Active Pulse Oximetry [RC] ASDIRECTED Care 11/09/18 20:31 Active RT Aerosol Therapy [RC] ASDIRECTED Care 11/09/18 20:32 Active Sodium Chloride 0.9% [Saline Flush] Med 11/09/18 20:32 Active 10 ml FLUSH ASDIRECTED PRN Sodium Chloride 0.9% [Saline Flush] Med 11/09/18 20:32 Active 2.5 ml FLUSH ASDIRECTED PRN Saline Lock Insert [OM.PC] Stat Oth 11/09/18 20:31 Ordered Medication Orders Sodium Chloride (Saline Flush) 10 ml FLUSH ASDIRECTED PRN PRN Reason: Keep Vein Open Last Admin: 11/09/18 20:55 Dose: 10 ml Sodium Chloride (Saline Flush) 2.5 ml FLUSH ASDIRECTED PRN PRN Reason: Keep Vein Open Last Admin: 11/09/18 20:55 Dose: 2.5 ml Labs: Laboratory Tests 11/09/18 11/09/18 11/09/18 Range/Units 20:39 20:48 20:48 WBC 11.33 H (4.0-11.0) K/uL RBC 5.67 (4.50-5.90) M/uL Hgb 16.1 (13.0-17.0) g/dL Hct 47.1 (38.0-50.0) % MCV 83.1 (80.0-98.0) fL MCH 28.4 (27.0-32.0) pg MCHC 34.2 (31.0-37.0) g/dL RDW Std Deviation 41.0 (28.0-62.0) fl RDW Coeff of Howard 14 (11.0-15.0) % Plt Count 388 (150-400) K/uL MPV 10.00 (7.40-12.00) fL Neut % (Auto) 63.6 (48.0-80.0) % Lymph % (Auto) 23.3 (16.0-40.0) % Nye % (Auto) 10.1 (0.0-15.0) % Eos % (Auto) 2.4 (0.0-7.0) % Baso % (Auto) 0.6 (0.0-1.5) % Neut # (Auto) 7.2 H (1.4-5.7) K/uL Lymph # (Auto) 2.6 H (0.6-2.4) K/uL Nye # (Auto) 1.1 H (0.0-0.8) K/uL Eos # (Auto) 0.3 (0.0-0.7) K/uL Baso # (Auto) 0.1 (0.0-0.1) K/uL ABG pH (7.35-7.45) ABG pCO2 (35-45) mmHG ABG pO2 (75-100) mmHG ABG HCO3 (22-26) mEq/L ABG Total CO2 ABG Base Excess (-2.0-2.0) Sodium 141 (136-148) mmol/L Potassium 3.7 (3.5-5.1) mmol/L Chloride 105 (98-107) mmol/L Carbon Dioxide 23.6 (21.0-32.0) mmol/L BUN 18 (7.0-18.0) mg/dL Creatinine 1.2 (0.8-1.3) mg/dL Est Cr Clr Drug Dosing 64.21 mL/min Estimated GFR (MDRD) > 60.0 ml/min Glucose 118 H (74-106) mg/dL Calcium 9.0 (8.5-10.1) mg/dL Total Bilirubin 1.0 (0.2-1.0) mg/dL AST 13 L (15-37) IU/L ALT 24 (14-63) IU/L Alkaline Phosphatase 49 (46-116) U/L B-Natriuretic Peptide (<100) PG/ML Total Protein 7.1 (6.4-8.2) g/dL Albumin 4.0 (3.4-5.0) g/dL Globulin 3.1 (2.6-4.0) g/dL Albumin/Globulin Ratio 1.3 (0.9-1.6) TSH 3rd Generation 1.61 (0.36-3.74) uIU/mL Urine Color YELLOW Urine Appearance CLEAR Urine pH 5.5 (5.0-8.0) Ur Specific Slater 1.015 (1.001-1.035) Urine Protein NEGATIVE (NEGATIVE) mg/dL Urine Glucose (UA) NEGATIVE (NEGATIVE) mg/dL Urine Ketones NEGATIVE (NEGATIVE) mg/dL Urine Occult Blood NEGATIVE (NEGATIVE) Urine Nitrite NEGATIVE (NEGATIVE) Urine Bilirubin NEGATIVE (NEGATIVE) Urine Urobilinogen 1.0 (<2.0) EU/dL Ur Leukocyte Esterase NEGATIVE (NEGATIVE) 11/09/18 11/09/18 Range/Units 20:48 22:05 WBC (4.0-11.0) K/uL RBC (4.50-5.90) M/uL Hgb (13.0-17.0) g/dL Hct (38.0-50.0) % MCV (80.0-98.0) fL MCH (27.0-32.0) pg MCHC (31.0-37.0) g/dL RDW Std Deviation (28.0-62.0) fl RDW Coeff of Howard (11.0-15.0) % Plt Count (150-400) K/uL MPV (7.40-12.00) fL Neut % (Auto) (48.0-80.0) % Lymph % (Auto) (16.0-40.0) % Nye % (Auto) (0.0-15.0) % Eos % (Auto) (0.0-7.0) % Baso % (Auto) (0.0-1.5) % Neut # (Auto) (1.4-5.7) K/uL Lymph # (Auto) (0.6-2.4) K/uL Nye # (Auto) (0.0-0.8) K/uL Eos # (Auto) (0.0-0.7) K/uL Baso # (Auto) (0.0-0.1) K/uL ABG pH 7.457 H (7.35-7.45) ABG pCO2 32 L (35-45) mmHG ABG pO2 64 L (75-100) mmHG ABG HCO3 22 (22-26) mEq/L ABG Total CO2 19.2 ABG Base Excess -0.6 (-2.0-2.0) Sodium (136-148) mmol/L Potassium (3.5-5.1) mmol/L Chloride (98-107) mmol/L Carbon Dioxide (21.0-32.0) mmol/L BUN (7.0-18.0) mg/dL Creatinine (0.8-1.3) mg/dL Est Cr Clr Drug Dosing mL/min Estimated GFR (MDRD) ml/min Glucose (74-106) mg/dL Calcium (8.5-10.1) mg/dL Total Bilirubin (0.2-1.0) mg/dL AST (15-37) IU/L ALT (14-63) IU/L Alkaline Phosphatase (46-116) U/L B-Natriuretic Peptide 37 (<100) PG/ML Total Protein (6.4-8.2) g/dL Albumin (3.4-5.0) g/dL Globulin (2.6-4.0) g/dL Albumin/Globulin Ratio (0.9-1.6) TSH 3rd Generation (0.36-3.74) uIU/mL Urine Color Urine Appearance Urine pH (5.0-8.0) Ur Specific Slater (1.001-1.035) Urine Protein (NEGATIVE) mg/dL Urine Glucose (UA) (NEGATIVE) mg/dL Urine Ketones (NEGATIVE) mg/dL Urine Occult Blood (NEGATIVE) Urine Nitrite (NEGATIVE) Urine Bilirubin (NEGATIVE) Urine Urobilinogen (<2.0) EU/dL Ur Leukocyte Esterase (NEGATIVE) Meds: Medications Generic Name Dose Route Start Last Admin Trade Name Freq PRN Reason Stop Dose Admin Sodium Chloride 10 ml 11/09/18 20:32 11/09/18 20:55 Saline Flush FLUSH 10 ml ASDIRECTED PRN Administration Keep Vein Open Sodium Chloride 2.5 ml 11/09/18 20:32 11/09/18 20:55 Saline Flush FLUSH 2.5 ml ASDIRECTED PRN Administration Keep Vein Open Discontinued Medications Generic Name Dose Route Start Last Admin Trade Name Freq PRN Reason Stop Dose Admin Albuterol/Ipratropium 3 ml 11/09/18 20:32 11/09/18 20:55 Duoneb 3.0-0.5 Mg/3 Ml NEB 11/09/18 20:33 3 ml ONETIME ONE Administration Sodium Chloride 500 mls @ 999 mls/hr 11/09/18 20:45 Normal Saline IV STAT DIANE Departure - Departure Time of Disposition: 22:19 Disposition: Home, Self-Care 01 Condition: Good Clinical Impression: Insomnia Qualifiers: Insomnia type: unspecified Qualified Code(s): G47.00 - Insomnia, unspecified - Discharge Information Referrals: PCP,None [Primary Care Provider] - Forms: ED Department Discharge Additional Instructions: The following information is given to patients seen in the emergency department who are being discharged to home. This information is to outline your options for follow-up care. We provide all patients seen in our emergency department with a follow-up referral. The need for follow-up, as well as the timing and circumstances, are variable depending upon the specifics of your emergency department visit. If you don't have a primary care physician on staff, we will provide you with a referral. We always advise you to contact your personal physician following an emergency department visit to inform them of the circumstance of the visit and for follow-up with them and/or the need for any referrals to a consulting specialist. The emergency department will also refer you to a specialist when appropriate. This referral assures that you have the opportunity for followup care with a specialist. All of these measure are taken in an effort to provide you with optimal care, which includes your followup. Under all circumstances we always encourage you to contact your private physician who remains a resource for coordinating your care. When calling for followup care, please make the office aware that this follow-up is from your recent emergency room visit. If for any reason you are refused follow-up, please contact the [facility] emergency department at and ask to speak to the emergency department charge nurse. STEFANY [facility] Primary care- Internal Medicine and Family [facility] [address] [place] [id number] Please try [id number] melatonin 3 mg at first and then increased to 6 mg before bed to try to help with sleep. If this does not work you can try 1 dose of Benadryl 50 mg before bedtime. Please call and schedule a follow-up appointment in the clinic for further care and evaluation of this problem as well as your mildly low oxygen level. All your test tonight were all negative but this does need further evaluation and care. Return to ER as needed and as discussed - My Orders Last 24 Hours: My Active Orders 11/09/18 20:31 Cardiac Monitoring [RC] . DIRECTED EKG Documentation Completion [RC] STAT Pulse Oximetry [RC] ASDIRECTED Saline Lock Insert [OM.PC] Stat 11/09/18 20:32 RT Aerosol Therapy [RC] ASDIRECTED Sodium Chloride 0.9% [Saline Flush] 10 ml FLUSH ASDIRECTED PRN Sodium Chloride 0.9% [Saline Flush] 2.5 ml FLUSH ASDIRECTED PRN - Assessment/Plan Last 24 Hours: My Active Orders 11/09/18 20:31 Cardiac Monitoring [RC] . DIRECTED EKG Documentation Completion [RC] STAT Pulse Oximetry [RC] ASDIRECTED Saline Lock Insert [OM.PC] Stat 11/09/18 20:32 RT Aerosol Therapy [RC] ASDIRECTED Sodium Chloride 0.9% [Saline Flush] 10 ml FLUSH ASDIRECTED PRN Sodium Chloride 0.9% [Saline Flush] 2.5 ml FLUSH ASDIRECTED PRN
[2018-11-09] MEDS ORDERED: Sodium Chloride 0.9% 500 ML IV SCH (20:45)
[2018-11-09 21:21] LABS: BLOOD UREA NITROGEN,BUN 18 mg/dL (7.0-18.0); CARBON DIOXIDE,CO2 23.6 mmol/L (21.0-32.0); CHLORIDE,CL 105 mmol/L (98-107); GLUCOSE RANDOM 118 mg/dL (74-106); POTASSIUM,K 3.7 mmol/L (3.5-5.1); SODIUM,NA 141 mmol/L (136-148)
--- NOTE | 2018-11-09 21:45 | CR ---
INDICATION: Pain and SOB. TECHNIQUE: PA and lateral. COMPARISON: 10/06/2018. FINDINGS: Lungs and pleural spaces clear. Heart size and pulmonary vasculature within normal limits. No significant osseous abnormality. IMPRESSION: Negative chest. Dictated by Jr Becerra MD @ Nov 09 2018 9:42PM Signed by Dr. Jr Becerra @ Nov 09 2018 9:45PM
[2018-11-09] MEDS ORDERED: LORazepam 1 MG Tab PO ONE (22:21)
[2018-11-09 22:27] VITALS: BP 138/87; PULSE 85
== END 2018-11-09 22:34 | disposition home or self-care (01) ==
LOC: MW.ED 20:10
DX: G47.00 Insomnia, unspecified (principal); Z79.899 Other long term (current) drug therapy; Z87.442 Personal history of urinary calculi
CPT/HCPCS: 36415; 36600; 71046; 80053; 81003; 82803; 83880; 84443; 85025; 93005; 99284; A9270; 99283; J7620-GY

== ENCOUNTER 2018-11-11 13:03 | Emergency (ER) | payer MEDICARE, OTHER ==
--- NOTE | 2018-11-11 13:58 | EDM.PDOC ---
ED HPI GENERAL MEDICAL PROBLEM - General Chief Complaint: General Stated Complaint: SLEEPING COMPLAINT Time Seen by Provider: 11/11/18 13:55 Source of Information: Reports: Patient History Limitations: Reports: No Limitations - History of Present Illness INITIAL COMMENTS - FREE TEXT/NARRATIVE: HISTORY AND PHYSICAL: History of present illness: Patient is a 62-year-old male presents to the ED with complaint of not being able to sleep. He was seen for this 2 days ago and had a negative work up done. He has no new complaints today. He denies chest pain, SOB, abdominal pain, headache, fevers, chills. He states he is only getting a couple of hours of sleep per night. He has not been drinking caffeine. He has been taking 6mg melatonin that past 2 days, otherwise denies any new medications. He denies alcohol, tobacco, or illicit drug use. He has an appointment with Dr. Gonzalez in 1 week from today but states he can not go on without getting sleep for another week. He does note that he slept well 2 days ago after receiving ativan in the ED. Review of systems: As per history of present illness and below otherwise all systems reviewed and negative. Past medical history: As per history of present illness and as reviewed below otherwise noncontributory. Surgical history: As per history of present illness and as reviewed below otherwise noncontributory. Social history: No reported history of drug or alcohol abuse. Family history: As per history of present illness and as reviewed below otherwise noncontributory. Physical exam: General: Patient sitting comfortably in no acute distress and nontoxic appearing HEENT: Atraumatic, normocephalic, pupils reactive, negative for conjunctival pallor or scleral icterus, mucous membranes moist, throat clear, neck supple, nontender, trachea midline. No meningeal signs. Lungs: Clear to auscultation, breath sounds equal bilaterally, chest nontender. Heart: S1S2, regular, negative for clicks, rubs, or overt murmur. Abdomen: Soft, nondistended, nontender. Negative for masses or hepatosplenomegaly. Negative for costovertebral tenderness. No rigidity, rebound , guarding. Pelvis: Stable nontender. Genitourinary: Deferred. Rectal: Deferred. Extremities: Atraumatic, negative for cords or calf pain. Neurovascular unremarkable. Neuro: Awake, alert, oriented. Cranial nerves II through XII unremarkable. Cerebellum unremarkable. Motor and sensory unremarkable throughout. Exam nonfocal. Notes: Diagnostics: UA, UDS Therapeutics: none Prescriptions: trazodone 50mg (#7) Impression: insomnia Plan: Take medication as instructed Follow-up with primary care provider Return to ED as needed as discussed Definitive disposition and diagnosis as appropriate pending reevaluation and review of above. - Related Data Allergies Allergy/AdvReac Type Severity Reaction Status Date / Time No Known Allergies Allergy Verified 11/11/18 13:38 Home Meds: Home Meds Multivitamin [Daily Multiple Vitamin] 1 tab PO DAILY 12/01/15 [History] Fish Oil/[place]-3 Fatty Acids [Fish Oil 1,000 MG] 1 each PO DAILY 04/13/17 [ History] Melatonin 3 mg PO BEDTIME 11/11/18 [History] Past Medical History HEENT History: Reports: Impaired Vision, Other (See Below) Other HEENT History: wears glasses Cardiovascular History: Reports: None Respiratory History: Reports: None Gastrointestinal History: Reports: GI Bleed, Other (See Below) Other Gastrointestinal History: duodenal ulcer Genitourinary History: Reports: Renal Calculus Musculoskeletal History: Reports: Arthritis, Back Pain, Chronic, Neck Pain, Chronic Neurological History: Reports: Other (See Below) Other Neuro History: recent syncopal episode 04/16/2017 Psychiatric History: Reports: None Endocrine/Metabolic History: Reports: Obesity/BMI 30+ Hematologic History: Reports: Blood Transfusion(s) Other Hematologic History: 2 units on 04/16/2017 Immunologic History: Reports: None Oncologic (Cancer) History: Reports: None Dermatologic History: Reports: None - Infectious Disease History Infectious Disease History: Reports: Chicken Pox, Measles - Past Surgical History Head Surgeries/Procedures: Reports: None HEENT Surgical History: Reports: Adenoidectomy, Oral Surgery, Tonsillectomy Cardiovascular Surgical History: Reports: None Respiratory Surgical History: Reports: None GI Surgical History: Reports: Colonoscopy, EGD Male Surgical History: Reports: Kidney Stone Extraction, Lithotripsy (ESWL) Other Male Surgeries/Procedures: surgery x4 Endocrine Surgical History: Reports: None Neurological Surgical History: Reports: None Musculoskeletal Surgical History: Reports: None Oncologic Surgical History: Reports: None Dermatological Surgical History: Reports: None - History Comment History Comment: etoh "2x a day" per ER note, but the patient states that he has not had ETOH in one year. Social & Family History - Family History Family Medical History: Noncontributory Cardiac: Reports: Bypass, Other (See Below) Other Cardiac Family History: Father had a "valve explode in 1971" and sister had CABG. - Tobacco Use Smoking Status *Q: Never Smoker - Caffeine Use Caffeine Use: Reports: Soda - Recreational Drug Use Recreational Drug Use: No ED ROS GENERAL - Review of Systems Review Of Systems: ROS reveals no pertinent complaints other than HPI. ED EXAM, GENERAL - Physical Exam Exam: See Below (see dictation) Course - Vital Signs Last Recorded V/S: Last Vital Signs Temp 97.7 F 11/11/18 13:39 Pulse 88 11/11/18 13:39 Resp 16 11/11/18 13:39 BP 146/77 H 11/11/18 13:39 Pulse Ox 95 11/11/18 13:39 - Orders/Labs/Meds Orders: Active Orders 24 hr Category Date Time Status UA W/MICROSCOPIC [URIN] Stat Lab 11/11/18 14:23 Results Labs: Laboratory Tests 11/11/18 11/11/18 Range/Units 14:23 14:23 Urine Color YELLOW Urine Appearance CLEAR Urine pH 6.0 (5.0-8.0) Ur Specific [place] 1.020 (1.001-1.035) Urine Protein NEGATIVE (NEGATIVE) mg/dL Urine Glucose (UA) NEGATIVE (NEGATIVE) mg/dL Urine Ketones NEGATIVE (NEGATIVE) mg/dL Urine Occult Blood TRACE-INTACT H (NEGATIVE) Urine Nitrite NEGATIVE (NEGATIVE) Urine Bilirubin NEGATIVE (NEGATIVE) Urine Urobilinogen 1.0 (<2.0) EU/dL Ur Leukocyte Esterase NEGATIVE (NEGATIVE) Urine Opiates Screen NEGATIVE (NEGATIVE) Ur Oxycodone Screen NEGATIVE (NEGATIVE) Urine Methadone Screen NEGATIVE (NEGATIVE) Ur Barbiturates Screen NEGATIVE (NEGATIVE) Ur Phencyclidine Scrn NEGATIVE (NEGATIVE) Ur Amphetamine Screen NEGATIVE (NEGATIVE) U Methamphetamines Scrn NEGATIVE (NEGATIVE) U Benzodiazepines Scrn NEGATIVE (NEGATIVE) U Cocaine Metab Screen NEGATIVE (NEGATIVE) U Marijuana (THC) Screen NEGATIVE (NEGATIVE) Departure - Departure Time of Disposition: 15:05 Disposition: Home, Self-Care 01 Condition: Good Clinical Impression: Insomnia Qualifiers: Insomnia type: unspecified Qualified Code(s): G47.00 - Insomnia, unspecified - Discharge Information Referrals: PCP,Unknown [Primary Care Provider] - Forms: ED Department Discharge Additional Instructions: The following information is given to patients seen in the emergency department who are being discharged to home. This information is to outline your options for follow-up care. We provide all patients seen in our emergency department with a follow-up referral. The need for follow-up, as well as the timing and circumstances, are variable depending upon the specifics of your emergency department visit. If you don't have a primary care physician on staff, we will provide you with a referral. We always advise you to contact your personal physician following an emergency department visit to inform them of the circumstance of the visit and for follow-up with them and/or the need for any referrals to a consulting specialist. The emergency department will also refer you to a specialist when appropriate. This referral assures that you have the opportunity for follow-up care with a specialist. All of these measure are taken in an effort to provide you with optimal care, which includes your follow-up. Under all circumstances we always encourage you to contact your private physician who remains a resource for coordinating your care. When calling for follow-up care, please make the office aware that this follow-up is from your recent emergency room visit. If for any reason you are refused follow-up, please contact the [facility] Emergency Department at and asked to speak to the emergency department charge nurse. [facility] [address] [place] [id number] [place] [address] Take medication as instructed Follow-up with primary care provider Return to ED as needed as discussed - My Orders Last 24 Hours: My Active Orders 11/11/18 14:23 UA W/MICROSCOPIC [URIN] Stat - Assessment/Plan Last 24 Hours: My Active Orders 11/11/18 14:23 UA W/MICROSCOPIC [URIN] Stat
[2018-11-11 18:01] VITALS: BP 128/76; PULSE 70
== END 2018-11-11 15:27 | disposition home or self-care (01) ==
LOC: MW.ED 13:03
DX: G47.00 Insomnia, unspecified (principal); Z79.899 Other long term (current) drug therapy
CPT/HCPCS: 80305-QW; 81001; 99282; 99283

== ENCOUNTER 2018-11-12 08:37 | Emergency (ER) | payer MEDICARE, OTHER ==
--- NOTE | 2018-11-12 08:38 | EDM.PDOC ---
ED HPI GENERAL MEDICAL PROBLEM - General Stated Complaint: SHORT OF BREATH Time Seen by Provider: 11/12/18 08:38 Source of Information: Reports: Patient History Limitations: Reports: No Limitations - History of Present Illness INITIAL COMMENTS - FREE TEXT/NARRATIVE: History of present illness: []Patient returns to the ER for the third day in a row complaining of inability to sleep and shortness of breath. He has had a full workup in the last 2 visits including multiple vital signs, ABGs, EKGs, chest x-rays, and labs are all normal. After telling the patient his results of all these tests and suggesting that he follow-up with his primary doctor he stated that he thinks he has something up his nose blocking his breathing. Patient did make an appointment with his primary care doctor in 6 days. He states he cannot wait that long. Review of systems: As per history of present illness and below otherwise all systems reviewed and negative. Past medical history: As per history of present illness and as reviewed below otherwise noncontributory. Surgical history: As per history of present illness and as reviewed below otherwise noncontributory. Social history: No reported history of drug or alcohol abuse. Family history: As per history of present illness and as reviewed below otherwise noncontributory. Physical exam: General: Well developed, well nourished in NAD HEENT: Atraumatic, normocephalic, pupils reactive, negative for conjunctival pallor or scleral icterus, mucous membranes moist, throat clear, neck supple, nontender, trachea midline. Bilateral Nares are clear there is no polyps, mucus any form of blockage visable with otoscope. Sinus tenderness to palpation Lungs: Clear to auscultation, breath sounds equal bilaterally, chest nontender. Clear no rhonchi or rales Heart: S1S2, regular, negative for clicks, rubs, or JVD. Abdomen: NABS, Soft, nondistended, nontender. Negative for masses or hepatosplenomegaly. Negative for costovertebral tenderness. Pelvis: Stable nontender. Genitourinary: Deferred. Rectal: Deferred. Extremities: Atraumatic, negative for cords or calf pain. Neurovascular unremarkable. Neuro: Awake, alert, oriented. Cranial nerves II through XII unremarkable. Cerebellum unremarkable. Motor and sensory unremarkable throughout. Exam nonfocal. Skin:warm and dry Diagnostics: None Therapeutics: None ED Course: Vital signs stable exam normal Impression: Medical screening exam Anxiety Prescriptions: Ativan 0.5 mg 5 tablets no refills to take at bedtime Plan: Keep appointment with primary care follow-up Definitive disposition and diagnosis as appropriate pending reevaluation and review of above. - Related Data Allergies Allergy/AdvReac Type Severity Reaction Status Date / Time No Known Allergies Allergy Verified 11/12/18 08:40 Home Meds: Home Meds Multivitamin [Daily Multiple Vitamin] 1 tab PO DAILY 12/01/15 [History] Fish Oil/[place]-3 Fatty Acids [Fish Oil 1,000 MG] 1 each PO DAILY 04/13/17 [ History] Melatonin 3 mg PO BEDTIME 11/11/18 [History] Past Medical History HEENT History: Reports: Impaired Vision, Other (See Below) Other HEENT History: wears glasses Cardiovascular History: Reports: None Respiratory History: Reports: None Gastrointestinal History: Reports: GI Bleed, Other (See Below) Other Gastrointestinal History: duodenal ulcer Genitourinary History: Reports: Renal Calculus Musculoskeletal History: Reports: Arthritis, Back Pain, Chronic, Neck Pain, Chronic Neurological History: Reports: Other (See Below) Other Neuro History: recent syncopal episode 04/16/2017 Psychiatric History: Reports: None Endocrine/Metabolic History: Reports: Obesity/BMI 30+ Hematologic History: Reports: Blood Transfusion(s) Other Hematologic History: 2 units on 04/16/2017 Immunologic History: Reports: None Oncologic (Cancer) History: Reports: None Dermatologic History: Reports: None - Infectious Disease History Infectious Disease History: Reports: Chicken Pox, Measles - Past Surgical History Head Surgeries/Procedures: Reports: None HEENT Surgical History: Reports: Adenoidectomy, Oral Surgery, Tonsillectomy Cardiovascular Surgical History: Reports: None Respiratory Surgical History: Reports: None GI Surgical History: Reports: Colonoscopy, EGD Male Surgical History: Reports: Kidney Stone Extraction, Lithotripsy (ESWL) Other Male Surgeries/Procedures: surgery x4 Endocrine Surgical History: Reports: None Neurological Surgical History: Reports: None Musculoskeletal Surgical History: Reports: None Oncologic Surgical History: Reports: None Dermatological Surgical History: Reports: None - History Comment History Comment: etoh "2x a day" per ER note, but the patient states that he has not had ETOH in one year. Social & Family History - Family History Family Medical History: Noncontributory Cardiac: Reports: Bypass, Other (See Below) Other Cardiac Family History: Father had a "valve explode in 1971" and sister had CABG. - Caffeine Use Caffeine Use: Reports: Soda ED ROS GENERAL - Review of Systems Review Of Systems: See Below ED EXAM, GENERAL - Physical Exam Exam: See Below Course - Vital Signs Last Recorded V/S: Last Vital Signs Temp 96.8 F 11/12/18 08:39 Pulse 62 11/12/18 08:39 Resp 18 11/12/18 08:39 BP 153/87 H 11/12/18 08:39 Pulse Ox 95 11/12/18 08:39 Departure - Departure Time of Disposition: 09:06 Disposition: Home, Self-Care 01 Condition: Good Clinical Impression: Encounter for medical screening examination - Discharge Information *PRESCRIPTION DRUG MONITORING PROGRAM REVIEWED*: No *COPY OF PRESCRIPTION DRUG MONITORING REPORT IN PATIENT PENNIE: No Additional Instructions: The following information is given to patients seen in the emergency department who are being discharged to home. This information is to outline your options for follow-up care. We provide all patients seen in our emergency department with a follow-up referral. The need for follow-up, as well as the timing and circumstances, are variable depending upon the specifics of your emergency department visit. If you don't have a primary care physician on staff, we will provide you with a referral. We always advise you to contact your personal physician following an emergency department visit to inform them of the circumstance of the visit and for follow-up with them and/or the need for any referrals to a consulting specialist. The emergency department will also refer you to a specialist when appropriate. This referral assures that you have the opportunity for follow-up care with a specialist. All of these measure are taken in an effort to provide you with optimal care, which includes your follow-up. Under all circumstances we always encourage you to contact your private physician who remains a resource for coordinating your care. When calling for follow-up care, please make the office aware that this follow-up is from your recent emergency room visit. If for any reason you are refused follow-up, please contact the [facility] Emergency Department at and asked to speak to the emergency department charge nurse. [facility] [address] [place] [id number]
[2018-11-12 09:20] VITALS: BP 141/92; PULSE 66
== END 2018-11-12 09:16 | disposition home or self-care (01) ==
LOC: MW.ED 08:37
DX: F41.9 Anxiety disorder, unspecified (principal); Z79.899 Other long term (current) drug therapy
CPT/HCPCS: 99282; 99284

== ENCOUNTER 2020-07-03 23:00 | Emergency (ER) | payer MEDICARE, OTHER ==
[2020-07-03] MEDS ORDERED: Lactated Ringers 1,000 ML IV SCH (23:45)
[2020-07-03] MEDS ORDERED: Ketorolac 15 MG/ML SDV IVPUSH ONE (23:58)
[2020-07-04 00:44] LABS: CARBON DIOXIDE,CO2 23.2 mmol/L (21.0-32.0); POTASSIUM,K 4.2 mmol/L (3.5-5.1)
--- NOTE | 2020-07-04 01:28 | CT ---
INDICATION: left flank pain, history of stones CT ABDOMEN AND PELVIS WITHOUT CONTRAST TECHNIQUE: Multidetector CT imaging was performed through the abdomen and pelvis without intravenous contrast administration. Coronal and sagittal reconstructions were generated. COMPARISON: None. FINDINGS: Lower chest: Mild bibasilar lung atelectasis. Liver: Diffuse mild fatty infiltration of the liver. Gallbladder and bile ducts: No gallbladder wall thickening or calcified gallstones. No biliary dilation identified. Pancreas: Unremarkable. Spleen: Normal. Adrenals: No nodules or masses. Kidneys, ureters, and urinary bladder: 6 millimeter obstructing stone in the distal left ureter approximately 5 centimeters above the ureterovesical junction producing mild dilation of the left ureter and mild left hydronephrosis. A lobulated 9 millimeter nonobstructing stone is noted in the right renal pelvis just above the ureteropelvic junction, and an additional nonobstructing 6 millimeter stone is also present within the right renal pelvis. There is slight fullness of the right renal pelvis without farhana right hydronephrosis. Small bilateral nonobstructing intrarenal stones are also noted. Bilateral renal cortical hypodensities consistent with renal cysts, largest on the left. Diffuse bladder wall prominence due to nondistention. No bladder mass or definite pathologic wall thickening. Gastrointestinal tract and abdominal wall: Normal caliber small bowel without wall thickening. The appendix is normal. There are several sigmoid colon diverticula, without evidence of diverticulitis. Small fat containing left inguinal hernia. Vascular structures: Normal for age. Peritoneum: No free air, abscess, or significant free fluid. Lymph nodes: No pathologically enlarged nodes identified. Reproductive organs: Mild prostatomegaly. Bones: Mild spinal degenerative changes. IMPRESSION: 1. Obstructing 6 millimeter stone in the distal left ureter producing mild left hydroureteronephrosis. 2. Nonobstructing 9 millimeter and 6 millimeter stones within the right renal pelvis. Additional small bilateral nonobstructing intrarenal stones are also noted. 3. Nonacute findings as detailed above. RAYMON WEISS MD [employer] [employer] Dictated by Wilfrido Weiss MD @ 07/04/2020 1:26:43 AM Dictated by: Wilfrido Weiss MD @ 07/04/2020 01:27:54 (Electronically Signed)
[2020-07-04] MEDS ORDERED: Tamsulosin 0.4 MG Cap.ER PO ONE (02:04)
--- NOTE | 2020-07-04 02:44 | EDM.PDOC ---
ED HPI GENERAL MEDICAL PROBLEM - General Chief Complaint: Genitourinary Problem Stated Complaint: POSSIBLE KIDNEY STONE Time Seen by Provider: 07/03/20 23:52 - History of Present Illness INITIAL COMMENTS - FREE TEXT/NARRATIVE: CHIEF COMPLAINT(S): "I think I have a kidney stone" HISTORY OF PRESENT ILLNESS: This is a 64 year old man with a PMH of nephrolithiasis who presents to the ED with a CC of "I think I have a kidney stone." The patient states that he thinks he has a kidney stone. The patient states that he is experiencing flank pain that began at 10pm. He states the pain is located left flank and describes the pain as sharp and constant. He states that there is radiation to his groin and LLQ. He states that the pain is not relieved by anything but has not tried any paid medication and the pain is e xacerbated by trying to urinate. He states that the pain is 10/10. He states he has associated nausea but no vomiting. He denies any fever. He states that he has the urge to urinate but he is not urinating as much. REVIEW OF SYSTEMS: Constitutional: Denies fever, chills. Eyes: Denies eye pain Ears, Nose, Mouth, & Throat: Denies earache Cardiovascular: Denies chest pain Respiratory: Denies shortness of breath Gastrointestinal: Positive for Nausea. Denies vomiting, diarrhea, hematochezia. Genitourinary: Positive for left flank pain with radiation to groin, decreased urination, and increased urgency. Skin:Denies a rash MSK: Denies joint pain Neurological: Denies blurred vision Psychiatric: Denies depression PAST MEDICAL HISTORY: As per history of present illness and as reviewed below otherwise noncontributory. SURGICAL HISTORY: As per history of present illness and as reviewed below otherwise noncontributory. SOCIAL HISTORY: As per history of present illness and as reviewed below otherwise noncontributory. FAMILY HISTORY: As per history of present illness and as reviewed below otherwise noncontributory. EXAMINATION OF ORGAN SYSTEMS/BODY AREAS: Constitutional: Blood pressure was 140/82, HR 65, RR 18 with an oxygen sat of 96% on RA. T 36.7 General: Overall well appearing man in NAD Psychiatric: Appropriate mood and affect. Eyes: No scleral icterus or conjunctival erythema ENMT: Moist mucous membranes. No pharyngeal erythema Cardiovascular: Regular, rate, and rhythm. No gallops, murmurs, or rubs. Bilateral upper extremity pulses symmetric and intact. No peripheral edema. No JVD. Respiratory: Lungs clear to auscultation bilaterally. No wheezes, rales, or rhonchi. Gastrointestinal: Soft, non-tender, non-distended. Normoactive bowel sounds Genitourinary: No suprapubic tenderness no CVA tenderness Musculoskeletal: Normal range of motion. Skin: No lesions or abrasions. Neurological: Alert, GCS 15 MEDICAL DECISION MAKING AND COURSE IN THE ED WITH INTERPRETATION/REVIEW OF DIAGNOSTIC STUDIES: This is a 64 year old man with a PMH of nephrolithiasis who presents to the ED with L flank pain radiating to his groin who has stable vital signs and an unremarkable exam. At this time given his history of nephrolithiasis we will obtain a CTAP w/o contrast to evaluate. We will provide the patient with 1 L LR bolus and Toradol for pain relief. We will obtain CBC, BMP, and UA. We will reevaluate after workup. Laboratory: CBC reveals a leukocytosis of 14.13 with normal indices. Thrombocytosis at 432 otherwise unremarkable. BMP reveals elevated BUN at 19 and a creatinine of 1.3 which appears to be the patient's baseline and hyperglycemia at 129. Urinalysis was a clean catch with trace leukocyte esterase, negative nitrite with large blood. Interpretation: Hematuria The radiological images were viewed by myself along with reading the report from the radiologist. CT abdomen pelvis without contrast reveals a's obstructing 6 mm stone in the distal left ureter producing mild left hydronephrosis. There is also a nonobstructing 9 mm and 6 mm stone within the right renal pelvis. Additional small bilateral nonobstructing intrarenal stones. No other acute findings. After labs and imaging I did contact [facility] in the note and spoke with Dr. Gold and at this time she recommended Bactrim and to follow-up in clinic on Sunday. I did discuss the results with the patient. I did provide the patient with 2 tablets of Bactrim and sent a prescription to the pharmacy. He is to contact the number provided for follow-up. He is to return for any new or worsening symptoms. He was amenable to discharge at this time and had no further questions. DISPOSITION: The patient was discharged home in stable condition. The patient will follow up with urology on Sunday CONDITION: Fair PROCEDURES: None FINAL IMPRESSION(S)/DIAGNOSES: 1. Acute left obstructing nephrolithiasis Arthur Garcia M.D. L flank Pain Score (Numeric/FACES): 10 - Related Data Allergies Allergy/AdvReac Type Severity Reaction Status Date / Time No Known Allergies Allergy Verified 07/03/20 23:50 Home Meds: Home Meds Multivitamin [Daily Multiple Vitamin] 1 tab PO DAILY 12/01/15 [History] Sulfamethoxazole/Trimethoprim [Bactrim Ds Tablet] 1 each PO BID #6 tablet 07/04/20 [Rx] Tamsulosin HCl [Flomax] 0.4 mg PO DAILY #7 cap.er.24h 07/04/20 [Rx] Past Medical History HEENT History: Reports: Impaired Vision, Other (See Below) Other HEENT History: wears glasses Cardiovascular History: Reports: None Respiratory History: Reports: None Gastrointestinal History: Reports: GI Bleed, Other (See Below) Other Gastrointestinal History: duodenal ulcer Genitourinary History: Reports: Renal Calculus Musculoskeletal History: Reports: Arthritis, Back Pain, Chronic, Neck Pain, Chronic Neurological History: Reports: Other (See Below) Other Neuro History: recent syncopal episode 04/16/2017 Psychiatric History: Reports: None Endocrine/Metabolic History: Reports: Obesity/BMI 30+ Hematologic History: Reports: Blood Transfusion(s) Other Hematologic History: 2 units on 04/16/2017 Immunologic History: Reports: None Oncologic (Cancer) History: Reports: None Dermatologic History: Reports: None - Infectious Disease History Infectious Disease History: Reports: Chicken Pox, Measles - Past Surgical History Head Surgeries/Procedures: Reports: None HEENT Surgical History: Reports: Adenoidectomy, Oral Surgery, Tonsillectomy Cardiovascular Surgical History: Reports: None Respiratory Surgical History: Reports: None GI Surgical History: Reports: Colonoscopy, EGD Male Surgical History: Reports: Kidney Stone Extraction, Lithotripsy ([facility]) Other Male Surgeries/Procedures: surgery x4 Endocrine Surgical History: Reports: None Neurological Surgical History: Reports: None Musculoskeletal Surgical History: Reports: None Oncologic Surgical History: Reports: None Dermatological Surgical History: Reports: None - History Comment History Comment: etoh "2x a day" per ER note, but the patient states that he has not had ETOH in one year. Social & Family History - Family History Family Medical History: No Pertinent Family History Cardiac: Reports: Bypass, Other (See Below) Other Cardiac Family History: Father had a "valve explode in 1971" and sister had CABG. - Caffeine Use Caffeine Use: Reports: Soda - Recreational Drug Use Recreational Drug Use: No ED ROS GENERAL - Review of Systems Review Of Systems: See Below ED EXAM, GENERAL - Physical Exam Exam: See Below Course - Vital Signs Last Recorded V/S: Last Vital Signs Temp 36.8 C 07/04/20 03:08 Pulse 80 07/04/20 03:08 Resp 18 07/04/20 03:08 BP 129/83 07/04/20 03:08 Pulse Ox 93 L 07/04/20 03:08 - Orders/Labs/Meds Labs: Laboratory Tests 07/04/20 07/04/20 07/04/20 Range/Units 00:06 00:11 00:11 WBC 14.13 H (4.0-11.0) K/uL RBC 5.46 (4.50-5.90) M/uL Hgb 15.7 (13.0-17.0) g/dL Hct 46.9 (38.0-50.0) % MCV 85.9 (80.0-98.0) fL MCH 28.8 (27.0-32.0) pg MCHC 33.5 (31.0-37.0) g/dL RDW Std Deviation 43.2 (28.0-62.0) fl RDW Coeff of Howard 14 (11.0-15.0) % Plt Count 432 H (150-400) K/uL MPV 10.40 (7.40-12.00) fL Neut % (Auto) 72.7 (48.0-80.0) % Lymph % (Auto) 18.3 (16.0-40.0) % [place] % (Auto) 7.0 (0.0-15.0) % Eos % (Auto) 1.6 (0.0-7.0) % Baso % (Auto) 0.4 (0.0-1.5) % Neut # (Auto) 10.3 H (1.4-5.7) K/uL Lymph # (Auto) 2.6 H (0.6-2.4) K/uL [place] # (Auto) 1.0 H (0.0-0.8) K/uL Eos # (Auto) 0.2 (0.0-0.7) K/uL Baso # (Auto) 0.1 (0.0-0.1) K/uL Nucleated RBC % 0.0 /100WBC Nucleated RBCs # 0 K/uL Sodium 141 (136-148) mmol/L Potassium 4.2 (3.5-5.1) mmol/L Chloride 103 (98-107) mmol/L Carbon Dioxide 23.2 (21.0-32.0) mmol/L BUN 19 H (7.0-18.0) mg/dL Creatinine 1.3 (0.8-1.3) mg/dL Est Cr Clr Drug Dosing 57.71 mL/min Estimated GFR (MDRD) 55.2 ml/min Glucose 129 H (74-106) mg/dL Calcium 8.9 (8.5-10.1) mg/dL Urine Color YELLOW Urine Appearance CLOUDY Urine pH 5.5 (5.0-8.0) Ur Specific [place] >= 1.030 (1.001-1.035) Urine Protein 30 H (NEGATIVE) mg/dL Urine Glucose (UA) NEGATIVE (NEGATIVE) mg/dL Urine Ketones NEGATIVE (NEGATIVE) mg/dL Urine Occult Blood LARGE H (NEGATIVE) Urine Nitrite NEGATIVE (NEGATIVE) Urine Bilirubin SMALL H (NEGATIVE) Urine Ictotest NEGATIVE Urine Urobilinogen 0.2 (<2.0) EU/dL Ur Leukocyte Esterase TRACE H (NEGATIVE) Urine RBC 110-120 (0-2/HPF) Urine WBC 2-4 (0-5/HPF) Ur Epithelial Cells RARE (NONE-FEW) Calcium Oxalate Crystal MODERATE (NEGATIVE) Urine Bacteria FEW (NEGATIVE) Meds: Medications Discontinued Medications Generic Name Dose Route Start Last Admin Trade Name Freq PRN Reason Stop Dose Admin Lactated Ringer's 1,000 mls @ 999 mls/hr 07/03/20 23:45 07/04/20 00:04 Ringers, Lactated IV 999 mls/hr ASDIRECTED DIANE Administration Ketorolac Tromethamine 15 mg 07/03/20 23:58 07/04/20 00:04 Ketorolac 15 Mg/Ml Sdv IVPUSH 07/03/20 23:59 15 mg ONETIME ONE Administration Tamsulosin HCl 0.4 mg 07/04/20 02:04 07/04/20 02:10 Tamsulosin 0.4 Mg Cap.Er PO 07/04/20 02:05 0.4 mg ONETIME ONE Administration Trimethoprim/Sulfamethoxazole 2 tab 07/04/20 03:25 07/04/20 04:55 Sulfamethoxazole/Trimethoprim 800-160 Mg Tab PO 07/04/20 03:26 Not Given ONETIME STA Departure - Departure Time of Disposition: 02:43 Disposition: Home, Self-Care 01 Condition: Fair Clinical Impression: Nephrolithiasis - Discharge Information *PRESCRIPTION DRUG MONITORING PROGRAM REVIEWED*: No *COPY OF PRESCRIPTION DRUG MONITORING REPORT IN PATIENT PENNIE: No Prescriptions: Sulfamethoxazole/Trimethoprim [Bactrim Ds Tablet] 1 each PO BID #6 tablet Tamsulosin HCl [Flomax] 0.4 mg PO DAILY #7 cap.er.24h Instructions: Kidney Stones, [id number] Referrals: Lopez Gnozalez MD [Primary Care Provider] - Forms: ED Department Discharge Additional Instructions: You were evaluated today on an emergent basis. At this time you were diagnosed with an obstructive kidney stone. At this time there is no evidence of infection. I did contact Dr. Gold who recommended follow-up on Sunday in clinic. The numbers provided below. Please take Tylenol and Motrin for pain relief. Please use Flomax daily. If you have any worsening of pain, fevers, vomiting please return to the emergency department. [facility] [address] [place] [id number] The patient is informed of any results of their evaluation and diagnostic workup and all questions are answered. They are given discharge instructions and return precautions. The patient is stable for discharge. The patient states they understand and agree with the plan and that they will return if their symptoms get worse or if they have any new concerns. The following information is given to patients seen in the emergency department who are being discharged to home. This information is to outline your options for follow-up care. We provide all patients seen in our emergency department with a follow-up referral. The need for follow-up, as well as the timing and circumstances, are variable depending upon the specifics of your emergency department visit. If you don't have a primary care physician on staff, we will provide you with a referral. We always advise you to contact your personal physician following an emergency department visit to inform them of the circumstance of the visit and for follow-up with them and/or the need for any referrals to a consulting specialist. The emergency department will also refer you to a specialist when appropriate. This referral assures that you have the opportunity for follow-up care with a specialist. All of these measure are taken in an effort to provide you with optimal care, which includes your follow-up. Under all circumstances we always encourage you to contact your private physician who remains a resource for coordinating your care. When calling for follow-up care, please make the office aware that this follow-up is from your recent emergency room visit. If for any reason you are refused follow-up, please contact the [facility] Emergency Department at and asked to speak to the emergency department charge nurse. Sepsis Event Note (ED) - Evaluation Sepsis Screening Result: No Definite Risk
[2020-07-04] MEDS: Sulfamethoxazole/Trimethoprim 800-160 MG Tab PO STA ×2 (03:46→04:55)
[2020-07-04 05:06] VITALS: BP 129/83; PULSE 80
== END 2020-07-04 03:08 | disposition home or self-care (01) ==
LOC: MW.ED 23:00
DX: N13.2 Hydronephrosis with renal and ureteral calculous obstruction (principal); E66.9 Obesity, unspecified; Z68.36 Body mass index [BMI] 36.0-36.9, adult
CPT/HCPCS: 36415; 74176; 80048; 81001; 85025; 96374; 99284; A9270; J1885; J7120; 99283

== ENCOUNTER 2025-02-27 22:00 | Emergency (ER) | payer MEDICARE, OTHER ==
[2025-02-27 22:34] LABS: BASOPHILS ABSOLUTE AUTO 0.12 K/uL (0.00-0.20); BASOPHILS PERCENT AUTO 0.9 % (0.0-1.0); EOSINOPHILS ABSOLUTE AUTO 0.41 K/uL (0.00-0.45); EOSINOPHILS PERCENT AUTO 3.2 % (0.0-6.0); IMMATURE GRAN ABSOLUTE AUTO 0.08 K/uL (0.00-0.05); IMMATURE GRAN PERCENT AUTO 0.6 % (0.0-0.4); LYMPHOCYTES ABSOLUTE AUTO 3.46 K/uL (1.00-4.80); LYMPHOCYTES PERCENT AUTO 27.2 % (24.0-44.0); MEAN PLATELET VOLUME 9.6 fL (9.4-12.4); MONOCYTES ABSOLUTE AUTO 1.20 K/uL (0.00-0.80); MONOCYTES PERCENT AUTO 9.4 % (0.0-8.0); NEUTROPHILS ABSOLUTE AUTO 7.43 K/uL (1.80-7.70); NEUTROPHILS PERCENT AUTO 58.7 % (41.0-71.0); NRBC ABSOLUTE 0.00 K/uL (0.00-0.02); NRBC PERCENT 0.0 /100WBC (0.0-0.2); RED BLOOD CELL COUNT 4.82 M/uL (4.52-5.90); WHITE BLOOD CELL COUNT,WBC 12.70 K/uL (3.9-11.3)
[2025-02-27 22:37] LABS: APPEARANCE,URINE CLEAR; GLUCOSE,URINE NEGATIVE (NEGATIVE); OCCULT BLOOD,URINE TRACE-INTACT (NEGATIVE)
[2025-02-27 22:38] LABS: EPITHELIAL CELLS,URINE FEW (NONE-FEW)
[2025-02-27] MEDS: Pantoprazole 80 MG in Sodium Chloride 0.9% 20 ML IVPUSH ONE (22:52)
[2025-02-27 22:55] LABS: A/G RATIO 1.2 (0.9-1.6); ALANINE AMINOTRANSFERASE,ALT 19 IU/L (14-63); ASPARTATE AMNIOTRANSFERASE,AST 18 IU/L (15-37); BILIRUBIN TOTAL 1.0 mg/dL (0.2-1.0); BLOOD UREA NITROGEN,BUN 28 mg/dL (7.0-18.0); CARBON DIOXIDE,CO2 25.1 mmol/L (21.0-32.0); CHLORIDE,CL 107 mmol/L (98-107); CREATININE 1.1 mg/dL (0.8-1.3); GLUCOSE RANDOM 111 mg/dL (74-106); POTASSIUM,K 3.9 mmol/L (3.5-5.1); PROTEIN TOTAL,TP 6.7 g/dL (6.4-8.2); SODIUM,NA 140 mmol/L (136-148)
[2025-02-27 23:10] LABS: PLATELET COUNT,PLT 670 K/uL (150-400)
[2025-02-27 23:28] LABS: ESTIMATED GFR 72 mL/min (>60)
[2025-02-27] MEDS: Iopamidol 755 MG/ML 500 ML Multipack Bottle IVPUSH STA (23:45)
[2025-02-28 01:06] VITALS: BP 140/89; PULSE 67
== END 2025-02-28 01:05 | disposition home or self-care (01) ==
LOC: MW.ED 22:00
DX: K92.2 Gastrointestinal hemorrhage, unspecified (principal); Z79.899 Other long term (current) drug therapy
CPT/HCPCS: 36415; 74177; 80053; 81001; 83690; 85025; 96374; 99285; J2470; Q9967